=== PATIENT | female | born 1935 | race Caucasian/White ===

== ENCOUNTER → 2017-06-15 | Outpatient (CLI) | payer MEDICARE, BC | END | disposition home or self-care (01) | LOC: LABPAT 09:32 | PROVIDERS: ATTEND Orthopaedic Surgery | DX: Z01.812 Encounter for preprocedural laboratory examination (principal) | CPT/HCPCS: 86850; 86900; 86901; 87070 ==

== ENCOUNTER → 2017-09-24 | Outpatient (CLI) | payer MEDICARE, BC ==
--- NOTE | 2017-09-24 14:30 | US ---
EXAMINATION TYPE: US thyroid st tissue head/neck DATE OF EXAM: 09/24/2017 COMPARISON: EXAMINATION TYPE: US thyroid st tissue head/neck DATE OF EXAM: 09/24/2017 COMPARISON: NONE CLINICAL HISTORY: Rt Submandibular mass R22.0. Patient states lump right side of neck under chin for two months. Scanned directly over palpable, located under chin on the right side in the submandibular area. There is a hypoechoic area adjacent to the submandibular gland with an echogenic center, consistent with a lymph node. IMPRESSION: Benign-appearing lymph node at the site of patient's palpable abnormality. Follow-up cli nically, consider repeat imaging as indicated.
== END | disposition home or self-care (01) ==
LOC: RADUSWWP 12:42
PROVIDERS: ATTEND Otolaryngology
DX: R22.0 Localized swelling, mass and lump, head (principal)
CPT/HCPCS: 76536

== ENCOUNTER → 2017-12-31 | Outpatient (CLI) | payer MEDICARE, BC ==
--- NOTE | 2017-12-31 09:46 | US ---
EXAMINATION TYPE: US thyroid st tissue head/neck DATE OF EXAM: 12/31/2017 COMPARISON: US CLINICAL HISTORY: Rt submandibular gland mass K11.1. F/U right submandibular mass, pt states palpable right neck still present, unchanged In area of pt's palpable (right submandibular), the previous benign appearing lymph node visualized is still present on today's scan= 6mm AP measurement with 2 additional benign appearing lymph nodes visualized 5mm and 4mm AP measurement Stable subcentimeter benign-appearing right submandibular lymph node with 2 smaller adjacent benign-a ppearing lymph nodes marked by technologist on current study. IMPRESSION: Overall stable findings presumed benign .
== END | disposition home or self-care (01) ==
LOC: RADUSWWP 08:54
PROVIDERS: ATTEND Otolaryngology
DX: K11.1 Hypertrophy of salivary gland (principal)
CPT/HCPCS: 76536

== ENCOUNTER 2020-01-24 08:48 | Emergency (ER) | payer MEDICARE, BC ==
[2020-01-24 08:56] VITALS: RESP 16
[2020-01-24] MEDS ORDERED: SODIUM CHLORIDE 0.9% 500 ML 500 ML IV ONE (09:34)
--- NOTE | 2020-01-24 09:46 | ED ---
General Adult HPI - General Chief complaint: Recheck/Abnormal Lab/Rx Stated complaint: High BP/low pulse/ear problems Time Seen by Provider: 01/24/20 09:11 Source: patient, RN notes reviewed Mode of arrival: wheelchair Limitations: no limitations - History of Present Illness Initial comments: 74-year-old female presents emergency Department chief complaint of blood pressure issues. Patient states that her blood pressure has been up and down for last week. Patient states her pulse has been also up and down. She does have a known history of A. fib on Coumadin, digoxin, metoprolol and losartan. Patient states that she recently increased her losartan to 1 pill daily from a half a pill. Patient states she sees Dr. 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 Pizarro. Patient denies any associated chest pain, shortness breath, nausea vomiting. She states occasionally she's felt lightheaded or had a headache but does not have those current symptoms currently. Patient denies fevers or chills no URI symptoms. Denies any leg pa in or leg swelling. - Related Data Home Medications Medication Instructions Recorded Confirmed Aspirin [Adult Low Dose Aspirin EC] 81 mg PO DAILY 06/19/17 06/23/17 Cyanocobalamin [Vitamin B-12] 500 mcg PO DAILY 06/19/17 06/23/17 Digoxin [Lanoxin] 125 mcg PO DAILY 06/19/17 06/23/17 Lovastatin [Mevacor] 10 mg PO DAILY 06/19/17 06/23/17 Metoprolol Succinate [Toprol XL] 25 mg PO DAILY 06/19/17 06/23/17 Previous Rx's Medication Instructions Recorded HYDROcodone/APAP 5-325MG [[place] 1 - 2 tab PO Q4-6H PRN #90 tab 06/26/17 5-325] Losartan-Hctz 50-12.5 mg [Hyzaar 0.5 each PO DAILY tab 06/26/17 50-12.5] Sennosides-Docusate Sodium 1 tab PO BID #60 tablet 06/26/17 [Senokot-S] Warfarin Sodium [Coumadin] 2.5 mg PO DAILY #30 tablet 06/26/17 Allergies Allergy/AdvReac Type Severity Reaction Status Date / Time Sulfa (Sulfonamide Allergy Unknown Rash/Hives Verified 01/24/20 08:53 Antibiotics) alcohol AdvReac Unknown Rapid Verified 01/24/20 08:53 Heart Rate, Flushed face Review of Systems ROS Statement: Those systems with pertinent positive or pertinent negative responses have been documented in the HPI. ROS Other: All systems not noted in ROS Statement are negative. Past Medical History Past Medical History: Atrial Fibrillation, Hypertension, Osteoarthritis (OA) Additional Past Medical History / Comment(s): VARICOSE VEINS, ENVIRONMENTAL ALLERGIES, SINUS DRAINAGE WITH COUGH- STATES SHE SPOKE WITH [facility] AT [facility]. STATES SHE WEARS SPECIAL SHOE LEFT FOOT AND USES CANE. History of Any Multi-Drug Resistant Organisms: None Reported Past Surgical History: Appendectomy, Hysterectomy, Orthopedic Surgery Additional Past Surgical History / Comment(s): HEMMORHOIDS, LEFT CARPAL TUNNEL , BUNIONS, FATTY TUMOR RIGHT BREAST, LEFT GREAT TOE, CATARACTS. Past Anesthesia/Blood Transfusion Reactions: Motion Sickness Additional Past Anesthesia/Blood Transfusion Reaction / Comment(s): "TAKES A LONG TIME TO WAKE UP" Past Psychological History: No Psychological Hx Reported Smoking Status: Never smoker Past Alcohol Use History: None Reported Past Drug Use History: None Reported - Past Family History Brother(s) Family Medical History: Cancer Sister(s) Family Medical History: Cancer Daughter(s) Additional Family Medical History / Comment(s): MULTIPLE SCLEROSIS- . General Exam Limitations: no limitations General appearance: alert, in no apparent distress Head exam: Present: atraumatic, normocephalic, normal inspection Eye exam: Present: normal appearance, PERRL, EOMI. Absent: scleral icterus, conjunctival injection, periorbital swelling ENT exam: Present: normal exam, normal oropharynx, mucous membranes moist, TM's normal bilaterally Neck exam: Present: normal inspection, full ROM. Absent: tenderness, meningismus, lymphadenopathy Respiratory exam: Present: normal lung sounds bilaterally. Absent: respiratory distress, wheezes, rales, rhonchi, stridor Cardiovascular Exam: Present: regular rate, normal rhythm, normal heart sounds. Absent: systolic murmur, diastolic murmur, rubs, gallop, clicks GI/Abdominal exam: Present: soft, normal bowel sounds. Absent: distended, tenderness, guarding, rebound, rigid Neurological exam: Present: alert, oriented X3 Skin exam: Present: warm, dry, intact, normal color. Absent: rash Course Vital Signs 01/24/20 01/24/20 08:54 09:55 Temperature 98.4 F Pulse Rate 63 66 Respiratory 16 16 Rate Blood Pressure 178/87 150/99 O2 Sat by Pulse 95 96 Oximetry Medical Decision Making - Medical Decision Making This 84-year-old female presented for blood pressure problems. Patient's blood pressure has been labile. Patient's blood pressure currently is 142/80. Patient is asymptomatic. Patient has had some recent medication changes she is to be on Hyzaar. Patient advised follow-up with a fire ranger for medication check. Patient's labs are unremarkable. Patient agrees with discharge and close follow-up return parameters were discussed. - Lab Data Result diagrams: 01/24/20 09:18 01/24/20 09:18 Lab Results 01/24/20 01/24/20 01/24/20 Range/Units 09:18 09:18 09:18 WBC 8.3 (3.8-10.6) k/uL RBC 5.18 (3.80-5.40) m/uL Hgb 15.3 (11.4-16.0) gm/dL Hct 47.7 H (34.0-46.0) % MCV 92.1 (80.0-100.0) fL MCH 29.5 (25.0-35.0) pg MCHC 32.0 (31.0-37.0) g/dL RDW 13.4 (11.5-15.5) % Plt Count 209 (150-450) k/uL Neutrophils % 82 % Lymphocytes % 9 % Monocytes % 6 % Eosinophils % 1 % Basophils % 1 % Neutrophils # 6.9 (1.3-7.7) k/uL Lymphocytes # 0.8 L (1.0-4.8) k/uL Monocytes # 0.5 (0-1.0) k/uL Eosinophils # 0.1 (0-0.7) k/uL Basophils # 0.0 (0-0.2) k/uL PT 15.8 H (9.0-12.0) sec INR 1.6 H (<1.2) APTT 28.8 (22.0-30.0) sec Sodium 135 L (137-145) mmol/L Potassium 4.4 (3.5-5.1) mmol/L Chloride 100 (98-107) mmol/L Carbon Dioxide 23 (22-30) mmol/L Anion Gap 12 mmol/L BUN 27 H (7-17) mg/dL Creatinine 1.01 (0.52-1.04) mg/dL Est GFR (CKD-EPI)AfAm 58 (>60 ml/min/1.73 sqM) Est GFR (CKD-EPI)NonAf 51 (>60 ml/min/1.73 sqM) Glucose 113 H (74-99) mg/dL Calcium 10.4 H (8.4-10.2) mg/dL Magnesium 1.8 (1.6-2.3) mg/dL Total Bilirubin 0.8 (0.2-1.3) mg/dL AST 31 (14-36) U/L ALT 21 (4-34) U/L Alkaline Phosphatase 62 (38-126) U/L Troponin I (0.000-0.034) ng/mL Total Protein 7.7 (6.3-8.2) g/dL Albumin 4.7 (3.5-5.0) g/dL Digoxin 0.8 ng/mL 01/24/20 Range/Units 09:18 WBC (3.8-10.6) k/uL RBC (3.80-5.40) m/uL Hgb (11.4-16.0) gm/dL Hct (34.0-46.0) % MCV (80.0-100.0) fL MCH (25.0-35.0) pg MCHC (31.0-37.0) g/dL RDW (11.5-15.5) % Plt Count (150-450) k/uL Neutrophils % % Lymphocytes % % Monocytes % % Eosinophils % % Basophils % % Neutrophils # (1.3-7.7) k/uL Lymphocytes # (1.0-4.8) k/uL Monocytes # (0-1.0) k/uL Eosinophils # (0-0.7) k/uL Basophils # (0-0.2) k/uL PT (9.0-12.0) sec INR (<1.2) APTT (22.0-30.0) sec Sodium (137-145) mmol/L Potassium (3.5-5.1) mmol/L Chloride (98-107) mmol/L Carbon Dioxide (22-30) mmol/L Anion Gap mmol/L BUN (7-17) mg/dL Creatinine (0.52-1.04) mg/dL Est GFR (CKD-EPI)AfAm (>60 ml/min/1.73 sqM) Est GFR (CKD-EPI)NonAf (>60 ml/min/1.73 sqM) Glucose (74-99) mg/dL Calcium (8.4-10.2) mg/dL Magnesium (1.6-2.3) mg/dL Total Bilirubin (0.2-1.3) mg/dL AST (14-36) U/L ALT (4-34) U/L Alkaline Phosphatase (38-126) U/L Troponin I 0.014 (0.000-0.034) ng/mL Total Protein (6.3-8.2) g/dL Albumin (3.5-5.0) g/dL Digoxin ng/mL Disposition Clinical Impression: Hypertension Disposition: HOME SELF-CARE Condition: Stable Instructions (If sedation given, give patient instructions): Hypertension (ED) Additional Instructions: Please return to the Emergency Department if symptoms worsen or any other concerns. Is patient prescribed a controlled substance at d/c from ED?: No Referrals: Susi Pizarro MD [Primary Care Provider] - 1-2 days Time of Disposition: 11:08
--- NOTE | 2020-01-24 09:59 | XR ---
EXAMINATION TYPE: XR chest 2V DATE OF EXAM: 01/24/2020 COMPARISON: 06/24/2017 INDICATION: Chest pain, history of A. fib TECHNIQUE: Frontal and lateral views of the chest are obtained. FINDINGS: The heart size is normal. The pulmonary vasculature is normal. The lungs are clear. Degenerative changes are at the right shoulder. Exam is stable from comparison. IMPRESSION: 1. No acute pulmonary process.
[2020-01-24 10:01] LABS: Basophils % (A) 1 %; Eosinophils # (A) 0.1 k/uL (0-0.7); Eosinophils % (A) 1 %; HCT 47.7 % (34.0-46.0); HGB 15.3 gm/dL (11.4-16.0); Lymphocytes # (A) 0.8 k/uL (1.0-4.8); Lymphocytes % (A) 9 %; MCH 29.5 pg (25.0-35.0); MCV 92.1 fL (80.0-100.0); Mean Platelet Volume 8.4; Monocytes # (A) 0.5 k/uL (0-1.0); Monocytes % (A) 6 %; Neutrophils # (A) 6.9 k/uL (1.3-7.7); Neutrophils % (A) 82 %; Platelet Count 209 k/uL (150-450); RBC 5.18 m/uL (3.80-5.40); RDW 13.4 % (11.5-15.5); WBC 8.3 k/uL (3.8-10.6)
[2020-01-24 10:13] LABS: Albumin 4.7 g/dL (3.5-5.0); Calcium 10.4 mg/dL (8.4-10.2); Digoxin 0.8 ng/mL; Magnesium 1.8 mg/dL (1.6-2.3); Potassium 4.4 mmol/L (3.5-5.1); Total Bilirubin 0.8 mg/dL (0.2-1.3); Total Protein 7.7 g/dL (6.3-8.2)
[2020-01-24 10:21] LABS: INR 1.6 (<1.2); Partial Thromboplastin Time 28.8 sec (22.0-30.0); Prothrombin Time 15.8 sec (9.0-12.0)
[2020-01-24 11:16] VITALS: BP 145/88; PULSE 68; TEMP 98
== END 2020-01-24 11:16 | disposition home or self-care (01) ==
LOC: EC 08:48
DX: I10 Essential (primary) hypertension (principal); I48.91 Unspecified atrial fibrillation; M19.90 Unspecified osteoarthritis, unspecified site; Z79.01 Long term (current) use of anticoagulants; Z79.899 Other long term (current) drug therapy; Z88.2 Allergy status to sulfonamides
CPT/HCPCS: 36415; 71046; 80053; 80162; 83735; 84484; 85025; 85610; 85730; 93005; 99284

== ENCOUNTER → 2020-04-17 | Outpatient (CLI) | payer MEDICARE, BC ==
[2020-04-17 12:51] LABS: INR 1.2 (<1.2); Prothrombin Time 12.1 sec (9.0-12.0)
== END | disposition home or self-care (01) ==
LOC: LABWHC1 11:20
PROVIDERS: ATTEND Dentist Oral and Maxillofacial Surgery
DX: Z51.81 Encounter for therapeutic drug level monitoring (principal); Z79.01 Long term (current) use of anticoagulants
CPT/HCPCS: 36415; 85610

== ENCOUNTER → 2021-01-22 | Outpatient (CLI) | payer MEDICARE, BC ==
[2021-01-22 11:06] LABS: HCT 43.6 % (34.0-46.0); HGB 14.8 gm/dL (11.4-16.0); MCH 31.5 pg (25.0-35.0); MCHC 33.9 g/dL (31.0-37.0); MCV 92.7 fL (80.0-100.0); Mean Platelet Volume 7.9; Platelet Count 221 k/uL (150-450); RBC 4.71 m/uL (3.80-5.40); RDW 13.5 % (11.5-15.5); WBC 7.1 k/uL (3.8-10.6)
[2021-01-22 11:19] LABS: INR 3.6 (<1.2); Partial Thromboplastin Time 40.2 sec (22.0-30.0); Prothrombin Time 34.4 sec (9.0-12.0)
[2021-01-22 11:21] LABS: Appearance,Urine Cloudy (Clear); Bacteria,Urine Occasional /hpf; Bilirubin,Urine Negative (Negative); Blood,Urine Small (Negative); Color,Urine Yellow; Glucose,Urine (UA) Negative (Negative); Hyaline Casts,Urine 9 /lpf (0-2); Ketones,Urine Negative (Negative); Leukocyte Esterase,Urine Large (Negative); Mucus,Urine Rare /hpf; Nitrite,Urine Negative (Negative); PH, Urine 7.5 (5.0-8.0); Protein,Urine 1+ (Negative); RBC,Urine 8 /hpf (0-5); Specific Gravity,Urine 1.015 (1.001-1.035); Squamous Epithelial Cell,Urine 3 /hpf (0-4); Urobilinogen,Urine <2.0 mg/dL (<2.0); WBC,Urine 29 /hpf (0-5)
[2021-01-22 11:24] LABS: Albumin 4.5 g/dL (3.5-5.0); Potassium 4.5 mmol/L (3.5-5.1); Total Bilirubin 0.7 mg/dL (0.2-1.3); Total Protein 7.1 g/dL (6.3-8.2)
== END | disposition home or self-care (01) ==
LOC: LABPAT 10:24
PROVIDERS: ATTEND Orthopaedic Surgery
DX: Z01.812 Encounter for preprocedural laboratory examination (principal); Z01.810 Encounter for preprocedural cardiovascular examination
CPT/HCPCS: 80053; 81001; 85027; 85610; 85730; 87070

== ENCOUNTER 2021-01-29 10:12 | Day surgery (SDC) | payer MEDICARE, BC ==
[2021-01-25 11:40] VITALS: BMI 24.9
[~2021-01-29 10:12] MED LIST: ACETAMINOPHEN TAB 500 MG TAB PO PRN; GABAPENTIN 300 MG CAP PO PRN; HYDROmorphone 0.5 MG/0.5 ML SYRINGE IVP PRN; LIDOCAINE 1% (10MG/ML) FOR IV START INTRADERMA PRN; MELOXICAM 7.5 MG TAB PO PRN; ONDANSETRON 4 MG/2 ML VIAL IVP ONE; TRANEXAMIC ACID 1,000 MG in SODIUM CHLORIDE 0.9% 100 ML IVPB PRN
[2021-01-29] MEDS: LACTATED RINGERS 1,000 ML IV SCH (11:02)
[2021-01-29] MEDS ORDERED: DEXAMETHASONE SOD PHOSPHATE 4 MG/ML 1 ML VIAL IVP ONE (11:03)
[2021-01-29 11:21] LABS: INR 1.1 (<1.2); Partial Thromboplastin Time 26.3 sec (22.0-30.0); Prothrombin Time 11.9 sec (9.0-12.0)
[2021-01-29] MEDS ORDERED: PHENYLEPHRINE-0.9% NACL SYG 1,000 MCG/10 ML SYRINGE ONE (11:28)
[2021-01-29] MEDS ORDERED: ceFAZolin 1,000 MG in SODIUM CHLORIDE 0.9% 1,000 ML IRRIGATION ONE (11:28)
[2021-01-29] MEDS ORDERED: fentaNYL (PF) 50 MCG/ML 2 ML AMP ONE (11:28)
[2021-01-29] MEDS ORDERED: SODIUM CHLORIDE 0.9% IRRIG 1,000 ML BTL IRRIGATION ONE (11:28)
[2021-01-29] MEDS ORDERED: HEPARIN SODIUM,PORCINE 10,000 UNIT/ML 1 ML VIAL ONE (11:28)
[2021-01-29] MEDS ORDERED: TRANEXAMIC ACID 1,000 MG/10 ML VIAL ONE (11:28)
[2021-01-29] MEDS ORDERED: MIDAZOLAM 2 MG/2 ML VIAL ONE (11:28)
[2021-01-29] MEDS ORDERED: SODIUM CHLORIDE 0.9% 100 ML BAG ONE (11:28)
[2021-01-29] MEDS ORDERED: PROPOFOL 10 MG/ML 20 ML VIAL IV ONE (11:28)
[2021-01-29] MEDS ORDERED: NALOXONE 0.4 MG/ML 1 ML VIAL IV PRN (11:31)
[2021-01-29] MEDS ORDERED: HYDROmorphone 0.2 MG/1 ML SYRINGE IVP PRN (11:31)
[2021-01-29] MEDS ORDERED: ONDANSETRON 4 MG/2 ML VIAL IVP PRN (11:31)
[2021-01-29] MEDS ORDERED: HYDROmorphone 0.5 MG/0.5 ML SYRINGE IVP PRN ×2 (11:31)
[2021-01-29] MEDS ORDERED: MAGNESIUM HYDROXIDE 2,400 MG/10 ML CUP PO PRN (11:31)
[2021-01-29] MEDS ORDERED: HYDROcodone/APAP 5-325MG 1 EACH TAB PO PRN (11:34)
[2021-01-29] MEDS: ROPIVACAINE/EPI/CLONIDINE/KET 50 ML SYRINGE MISCELLANE PRN ×2 (12:06→12:51)
--- NOTE | 2021-01-29 12:55 | P.OP ---
Date of Procedure: 01/29/21 Preoperative Diagnosis: severe osteoarthritis right hip Postoperative Diagnosis: severe osteoarthritis right hip Procedure(s) Performed: right total hip arthroplasty with a direct anterior approach Implants: [employer] Polarstem standard size 4 [employer] R3, 3 hole hemispherical acetabular shell, 52 mm [employer] Reflection 6.5 mm cancellus screw, 20 mm 2 [employer] R3, XLPE 20 acetabular liner [employer] Oxinium femoral head 36 m, +0 All components were press-fit. The articulation is Oxinium on polyethylene. Anesthesia: GETA, spinal Surgeon: Artis Serra Cdc Associate #1: Alayna Londono Estimated Blood Loss (ml): 300 (124 mL returned with Cell Saver) Pathology: other (femoral head) Condition: stable Disposition: PACU Indications for Procedure: After failure of conservative treatment we discussed the surgical and nonsurgical treatment options at length. Patient wishes to proceed with a total hip arthroplasty with a direct anterior approach. Complications specific to this procedure were discussed at length, including but not limited to infection, leg length discrepancy, dislocation, nerve injury, and fracture. Covid-19 was also discussed at length with the patient, and they are aware of the current policies and procedures. The patient was given the option of delaying surgery, but they elect to proceed knowing these risks. Patient is aware of all these complications and informed consent was obtained Operative Findings: the operative findings are consistent with severe osteoarthritis of the right hip Description of Procedure: Patient was seen and evaluated in the preoperative area and the consent was reviewed. The operative site was marked with a skin marker. The patient was then brought to the operating room and given preoperative antibiotics intravenously. 1 g of Tranexamic acid was also given intravenously. A spinal anesthetic was administered by the anesthesia department. during the surgery, the spinal anesthetic was not adequate for pain control. A general anesthetic was administered. The patient was then placed on the [place] table with the bony prominences well-padded. The hip area was then prepped with a ChloraPrep solution and draped in the usual sterile fashion. A universal timeout was then performed, which confirmed the patient's name, surgical site, ALLERGIES, and procedure being performed on the consent. Next the incision site was located at 1 cm distal to the anterior superior iliac spine along the flexion crease of the hip. The skin and subcutaneous tissues were sharply incised. Incision was carefully dissected down to the fascia overlying the tensor fascia ayo muscle. This fascia was then incised in line with the incision. Care was taken to stay laterally in order to avoid injuring the lateral femoral cutaneous nerve. Next, using blunt finger dissection, the tensor fascia ayo muscle was dissected off its investing fascia. The muscle was then carefully retracted laterally with a cobra retractor over the lateral neck of the femur. Next, the circumflex vessels were identified and cauterized using the AquaMantis device. The anterior hip capsule was then exposed. The capsule was then opened and an inverted T fashion. Cobra retractors were then placed intracapsularly. The retractors were maintained intracapsular throughout the procedure. The proximal femur was then visualized. A small amount of traction was placed on the leg. The femoral neck was then osteotomized appropriate level above the lesser trochanter. A small wedge of bone was then removed from the remaining femoral head. Next, using a corkscrew the femoral head was removed from the acetabulum. On gross visual inspection, the femoral head had complete loss of articular c artilage and multiple periarticular osteophytes. The femoral head was then measured. Attention was then turned to the acetabulum. The acetabulum was exposed and any remaining labrum was excised. Sequential reaming of the acetabulum was performed using fluoroscopic guidance until there was a good bed of bleeding cancellus bone. When the appropriate size was reached, a trial was then placed. The position and fit of the trial was checked with fluoroscopy. The trial was then removed. Then, using fluoroscopic guidance, the final implant was impacted at 20 of anteversion and 40 of abduction, and fully seated in the acetabulum. 2 screws were then placed in the acetabulum. Again fluoroscopy was used to check position of the screws. Next, the liner was then impacted, with a 20 elevated liner located in the anterior superior quadrant. Component locking was confirmed. Attention was then directed to the femur. With the aid of the [place] table, the femur was externally rotated to approximately 130, extended, and adducted under the opposite leg. A side hook was then placed under the proximal femur, and the side hook elevator was used to elevate the proximal femur while releasing the capsule. Retractors were then placed. A capsular release was performed, as well as a release of the conjoined tendon, which afforded excellent visualization of the proximal femur. Next, a box osteotome was used to lateralize the proximal femur. A hand riveter was then used to locate the femoral canal. Sequential broaching was then performed with appropriate size which afforded excellent fixation in the proximal femur. A trial was then placed with appropriate head and neck, and the hip was gently reduced with the aid of the [place] table. Fluoroscopy was then used to check position of the components, as well as to ensure equal leg lengths. The hip was then gently dislocated and the trials were then removed. Final implants were then impacted and the hip was again reduced. Final fluoroscopic x-rays confirmed that the components were in anatomic position, as well as equal leg lengths. The hip was also taken through range of motion, and found to be stable. The hip was then copiously irrigated with antibiotic solution with pulsatile lavage. The hip was then irrigated with Irrisept solution. The soft tissues were then injected with a ropivacaine solution, which consisted of 246.25 mg of ropivacaine, 0.5 mg of epinephrine, 30 mg of Toradol, 80 g of clonidine, and 48.45 mL of sterile water, for a total of 100 mL of fluid injected. A second dose of 1 g of Tranexamic acid was also given intravenously. Any blood collected by Cell Saver was then returned to the patient at this time. The fascia was then closed with 2-0 strata fix suture. The subcutaneous tissue was closed with 3-0 Vicryl. The subcuticular tissue was closed with 3-0 strata fix suture. The skin was then closed with Exofin skin glue. After the glue and dried, and Optifoam silver impregnated dressing was applied. The patient was then transferred to the recovery room in stable condition. The child life assistant ROB Walker was required due to the complexity of surgery, and the need for skilled surgical assist for positioning, draping, exposure, retraction, and closure of the wound.
[2021-01-29] MEDS: SODIUM CHLORIDE 0.9% 1,000 ML IV SCH ×3 (13:14→23:10)
--- NOTE | 2021-01-29 14:10 | XR ---
EXAMINATION TYPE: XR Hip Limited RT DATE OF EXAM: 01/29/2021 CLINICAL HISTORY: Right hip pain and osteoarthritis. TECHNIQUE: Single AP portable view of right hip is obtained immediately postoperatively. COMPARISON: None. FINDINGS: Metallic hardware from right hip arthroplasty is seen and appears satisfactory in alignment and position. There is evidence of recent surgery with subcutaneous gas noted laterally. IMPRESSION: Metallic hardware from right hip arthroplasty is satisfactory in position.
--- NOTE | 2021-01-29 16:11 | XR ---
Single view right hip liver image INDICATION: Postoperative hip COMPARISON: None FINDINGS: Patient is status post right total hip replacement with 2 acetabular screws. Soft tissue gas is noted . For full details please see the operative report. IMPRESSION: Patient is status post right total hip replacement with 2 acetabular screws. Soft tissue gas is noted . For full details please see the operative report.
--- NOTE | 2021-01-29 17:03 | FL ---
Fluoroscopy HISTORY: Hip arthroplasty 13 seconds fluoroscopy time supplied to the referring clinician. 2 intraoperative C-arm images docum ent the procedure. See dictated report from orthopedic surgery.
[2021-01-29] MEDS ORDERED: WARFARIN 2 MG TAB PO ONE (18:00)
--- NOTE | 2021-01-29 19:13 | CONS ---
CONSULTATION REASON FOR CONSULTATION: Advice regarding atrial fibrillation, hypertension, hyperlipidemia requested by Orthopedics. HISTORY OF PRESENT ILLNESS: This is an 85-year-old woman with a past history of atrial fibrillation, hypertension, hyperlipidemia, history of degenerative joint disease, rheumatoid arthritis, being followed by Dr. Pizarro in the outpatient setting. Underwent right total hip joint arthroplasty for severe DJD. The patient tolerated the procedure well. Patient being closely monitored. There is no history of fever, rigors. No headache, loss of consciousness, seizures. PAST MEDICAL HISTORY: Atrial fibrillation, hypertension, hyperlipidemia, history of DJD, rheumatoid arthritis. MEDICATIONS: Cipro 250 mg p.o. b.i.d. Toprol-XL, Mevacor, vitamin B12, acetaminophen, calcium, losartan, garlic, aspirin, Coumadin. ALLERGIES: SULFA AND ALCOHOL. FAMILY HISTORY: History of multiple sclerosis. SOCIAL HISTORY: No history of smoking. No history of alcohol. REVIEW OF SYSTEMS: ENT: No diminished vision or hearing. CARDIOVASCULAR: No angina or palpitations, otherwise as mentioned earlier. RESPIRATORY: No cough. GI: As mentioned earlier. : No dysuria. NERVOUS SYSTEM: No numbness or weakness. ALLERGY/IMMUNOLOGY: No asthma or hayfever. MUSCULOSKELETAL: As mentioned earlier. HEMATOLOGY: No history of anemia. ENDOCRINE: As mentioned earlier. CONSTITUTIONAL: As mentioned earlier. DERMATOLOGY: Negative. RHEUMATOLOGY: Negative. PSYCHIATRY: As mentioned earlier. PHYSICAL EXAMINATION: GENERAL: Patient is alert and oriented times three. VITAL SIGNS: Pulse 97, blood pressure 115/73, respirations 18, temperature 97.8, pulse ox 94% on room air. HEENT: Conjunctivae normal. Oral mucosa moist. NECK: No jugular venous distention. No carotid bruits. No lymph node enlargement. RESPIRATORY: Breath sounds diminished at the bases. No rhonchi, no crackles. HEART: S1 and S2, muffled. No S3 or S4. ABDOMEN: Soft, no tenderness. No masses palpable. EXTREMITIES: No edema, no swelling. NERVOUS: Higher functions as mentioned earlier. Moves all four limbs. No focal motor or sensory deficits. LYMPHATICS: No lymph nodes palpable in the neck or axillae. SKIN: No rashes. JOINTS: No active deforming arthropathy. LABS: At this time INR is normal. The preoperative labs, hematology is okay. Chemistry, sodium 135 and glucose 128. ASSESSMENT: 1. Status post right total hip joint arthroplasty for severe degenerative joint disease of the right hip. 2. Hyponatremia prior to the admission. 3. History of atrial fibrillation, chronic. 4. Hypertension. 5. Hyperlipidemia. 6. History of degenerative joint disease. 7. Rheumatoid arthritis. 8. Coumadin monitoring. 9. History of appendectomy. 10.History hysterectomy. 11.FULL CODE. RECOMMENDATION AND DISCUSSION: In this 85-year-old woman who presented with multiple complex medical issues, we will monitor the patient closely. Continue the current management and continue symptomatic treatment. I recommend initiate Coumadin and monitor PT/INR closely. Resume the home medications. Incentive spirometry. DVT prophylaxis. Recommend close followup with Dr. Pizarro in the outpatient setting. Further recommendations to follow. MMODL / IJN: [id number] /
[2021-01-29] MEDS: ENOXAPARIN 30 MG/0.3 ML SYRINGE SQ SCH (20:26)
[2021-01-29] MEDS: HYDROcodone/APAP 5-325MG 1 EACH TAB PO PRN (20:28)
[2021-01-29] MEDS ORDERED: SENNOSIDES-DOCUSATE SODIUM 1 EACH TAB PO SCH (21:00)
[2021-01-29] MEDS ORDERED: ATORVASTATIN 10 MG TAB PO SCH (21:00)
[2021-01-29] MEDS ORDERED: CIPROFLOXACIN HCL 250 MG TAB PO SCH (21:00)
[2021-01-30] MEDS: LACTATED RINGERS 1,000 ML IV SCH (05:08)
[2021-01-30 06:40] LABS: INR 1.3 (<1.2); Prothrombin Time 13.5 sec (9.0-12.0)
--- NOTE | 2021-01-30 07:23 | P.DS ---
Providers Date of admission: 01/29/2021 Attending physician: Artis Serra Consults: 01/29/21 11:31 Consult Physician Routine Consulting Provider: Susi Pizarro Consult Reason/Comments: medical management and anticoagulation Do you want consulting provider notified?: Yes Primary care physician: Susi Pizarro - Discharge Diagnosis(es) (1) Primary osteoarthritis of right hip Current Visit: Yes Status: Acute (2) Status post total hip replacement, right Current Visit: Yes Status: Acute Hospital Course: This is a 85-year-old female with known history of degenerative arthritis of the right hip. The patient presents for evaluation. After discussion and consideration patient elects to proceed with total hip arthroplasty with direct anterior approach. The patient is seen preoperatively by her primary care physician and cleared for surgery. Patient is admitted to [facility] on 01/29/2021 for total hip arthroplasty with direct anterior approach. The procedures performed without complication or sequelae. The patient is doing well postoperatively. Labs and vital signs are stable on day of discharge. On day of discharge patient's hip incision is healing well. There is minimal erythema. There is no drainage noted at this time. There is minimal soft tissue swelling to the hip and thigh. Patient has full foot and ankle motion without difficulty or pain. Neurovascular status to the right lower extremity is intact. Patient is discharged to home in good condition. Please see med rec for accurate list of home medications. Patient Condition at Discharge: Good Plan - Discharge Summary Discharge Rx Participant: Yes New Discharge Prescriptions: New HYDROcodone/APAP 5-325MG [[place] 5-325] 1 - 2 tab PO Q6HR PRN #32 tab PRN Reason: Pain Sennosides [Senokot] 2 tab PO DAILY PRN #60 tablet PRN Reason: Constipation No Action Metoprolol Succinate [Toprol XL] 12.5 mg PO QAM Cyanocobalamin [Vitamin B-12] 500 mcg PO SA Aspirin [Adult Low Dose Aspirin EC] 81 mg PO DAILY Warfarin Sodium [Coumadin] 2.5 mg PO DAILY #30 tablet Lovastatin [Mevacor] 10 mg PO HS Zinc 50 mg PO DAILY Magnesium 300 mg PO DAILY Losartan Potassium [Cozaar] 25 mg PO QAM Krill/[place]-3/Dha/Epa/Lipids [Krill Oil 350 mg Softgel] 1 each PO DAILY Garlic 1 each PO DAILY Calcium Carbonate/Vitamin D3 [Calcium 500 mg-Vit D3 5 mcg (200 Unit)] 1 each PO DAILY Ciprofloxacin HCl [Cipro] 250 mg PO BID Arnica Flower 3 tab SL DAILY Acetaminophen [Tylenol Extra Strength] 500 mg PO DAILY PRN PRN Reason: Pain Antibiotic 1 tab PO DIRECTED Discharge Medication List Aspirin [Adult Low Dose Aspirin EC] 81 mg PO DAILY 06/19/17 [History] Cyanocobalamin [Vitamin B-12] 500 mcg PO SA 06/19/17 [History] Metoprolol Succinate [Toprol XL] 12.5 mg PO QAM 06/19/17 [History] Warfarin Sodium [Coumadin] 2.5 mg PO DAILY #30 tablet 06/26/17 [Rx] Acetaminophen [Tylenol Extra Strength] 500 mg PO DAILY PRN 01/25/21 [History] Antibiotic 1 tab PO DIRECTED 01/25/21 [History] Arnica Flower 3 tab SL DAILY 01/25/21 [History] Calcium Carbonate/Vitamin D3 [Calcium 500 mg-Vit D3 5 mcg (200 Unit)] 1 each PO DAILY 01/25/21 [History] Garlic 1 each PO DAILY 01/25/21 [History] Krill/[place]-3/Dha/Epa/Lipids [Krill Oil 350 mg Softgel] 1 each PO DAILY 01/25/21 [History] Losartan Potassium [Cozaar] 25 mg PO QAM 01/25/21 [History] Lovastatin [Mevacor] 10 mg PO HS 01/25/21 [History] Magnesium 300 mg PO DAILY 01/25/21 [History] Zinc 50 mg PO DAILY 01/25/21 [History] Ciprofloxacin HCl [Cipro] 250 mg PO BID 01/29/21 [History] HYDROcodone/APAP 5-325MG [[place] 5-325] 1 - 2 tab PO Q6HR PRN #32 tab 01/29/21 [Rx] Sennosides [Senokot] 2 tab PO DAILY PRN #60 tablet 01/29/21 [Rx] Follow up Appointment(s)/Referral(s): Artis Serra DO [Doctor of Osteopathic Medicine] - 2 Weeks Activity/Diet/Wound Care/Special Instructions: Weightbearing as tolerated with walker. Leave dressing intact. Dressing may be removed by home care nurse or by patient in 7 days. Then change dressing twice daily until follow up. May shower with initial dressing intact and after removal. If dressing become saturated, please remove. Please resume Coumadin. Recommend use of compression stockings daily until follow up to help prevent swelling and blood clots. May remove at night before sleeping. Please follow-up with [facility] in 2 weeks and call with any questions or concerns, . Discharge Disposition: HOME WITH HOME HEALTH SERVICES
[2021-01-30 07:29] LABS: Basophils % (A) 0 %; Eosinophils % (A) 0 %; HCT 30.7 % (34.0-46.0); Lymphocytes # (A) 0.6 k/uL (1.0-4.8); Lymphocytes % (A) 6 %; MCH 31.3 pg (25.0-35.0); MCHC 33.8 g/dL (31.0-37.0); MCV 92.5 fL (80.0-100.0); Mean Platelet Volume 8.6; Monocytes # (A) 0.7 k/uL (0-1.0); Monocytes % (A) 6 %; Neutrophils % (A) 87 %; Platelet Count 183 k/uL (150-450); RBC 3.32 m/uL (3.80-5.40); RDW 14.1 % (11.5-15.5); WBC 10.4 k/uL (3.8-10.6)
[2021-01-30 07:48] LABS: HGB 10.4 gm/dL (11.4-16.0)
[2021-01-30 07:58] VITALS: BP 93/57; PULSE 63; RESP 17; TEMP 97.4
[2021-01-30] MEDS: ENOXAPARIN 30 MG/0.3 ML SYRINGE SQ SCH (08:14)
[2021-01-30] MEDS: HYDROcodone/APAP 5-325MG 1 EACH TAB PO PRN (08:18)
[2021-01-30] MEDS ORDERED: ZINC SULFATE 220 MG CAP PO SCH (09:00)
[2021-01-30] MEDS ORDERED: LOSARTAN 25 MG TAB PO SCH (09:00)
[2021-01-30] MEDS ORDERED: METOPROLOL SUCCINATE (ER) 25 MG TAB.ER.24H PO SCH (09:00)
[2021-01-30] MEDS ORDERED: CALCIUM CARB-VIT D 500 MG-5 MCG TAB PO SCH (09:00)
--- NOTE | 2021-01-30 13:22 | P.PN ---
Subjective Progress Note Date: 01/30/21 This is an 85-year-old female who was recently admitted for right total hip joint arthroplasty with history of severe degenerative joint disease along with atrial fibrillation, hypertension, hyperlipidemia, rheumatoid arthritis and is being closely monitored. Patient is maintained on Coumadin for anticoagulation and will continue. Orthopedics following closely and plans are for discharge today. Patient follows with Dr. Pizarro in the outpatient setting and instructed the patient to follow-up with primary care provider this week. Review of systems: Constitutional: No reports of fatigue, fever, or chills Cardiovascular: No reports of chest pain or palpitations Respiratory: No reports of shortness of breath or cough GI: No reports of nausea, vomiting, or diarrhea : No reports of dysuria or retention Neurovascular: No reports of weakness or numbness, reports some mild right hip discomfort All medications have been reviewed Objective - Vital Signs Vital signs: Vital Signs Temp 97.4 F L 01/30/21 07:58 Pulse 63 01/30/21 07:58 Resp 17 01/30/21 07:58 BP 93/57 01/30/21 07:58 Pulse Ox 96 01/30/21 07:58 Intake & Output 01/29/21 01/30/21 01/30/21 18:59 06:59 18:59 Intake Total 2351 400 Output Total 300 Balance 2050 400 Weight 68 kg Intake: IV 1151 Intake, IV Titration 400 Amount Lactated Ringers 1,000 ml 400 @ 20 mls/hr IV .Q24H HERMELINDO Rx#:[id number] Oral 800 400 Output: Estimated Blood Loss 300 Other: # Voids 1 - Exam Gen: This is a 85-year-old female sitting up in the chair awake, alert and oriented 3, well-developed, well-nourished. HEENT: Head is atraumatic, normocephalic. Pupils equal, round. Sclerae is anicteric. NECK: Supple. No JVD. No lymphadenopathy. No thyromegaly. LUNGS: Breath sounds diminished bilaterally with no rhonchi or crackles noted. No intercostal retractions. HEART: 1, S2 are muffled ABDOMEN: Soft. Bowel sounds are present. No masses. No tenderness. EXTREMITIES: No pedal edema. No calf tenderness. NEUROLOGICAL: Patient is awake, alert and oriented x3. Cranial nerves 2 through 12 are grossly intact. - Labs CBC & Chem 7: 01/30/21 05:48 Labs: Abnormal Lab Results - Last 24 Hours (Table) 01/30/21 01/30/21 Range/Units 05:48 05:48 RBC 3.32 L (3.80-5.40) m/uL Hgb 10.4 L D (11.4-16.0) gm/dL Hct 30.7 L (34.0-46.0) % Neutrophils # 9.0 H (1.3-7.7) k/uL Lymphocytes # 0.6 L (1.0-4.8) k/uL PT 13.5 H (9.0-12.0) sec INR 1.3 H (<1.2) Assessment and Plan Assessment: Status post right total hip joint arthroplasty for severe degenerative joint disease of the right hip Hyponatremia prior to admission History of atrial fibrillation, chronic Hypertension Hyperlipidemia History of degenerative joint disease Rheumatoid arthritis Coumadin monitoring history of appendectomy history of hysterectomy Full code Recommendations and discussion: Recommend to continue with Coumadin and close PT/INR monitoring. INR today is 1.3 and was given a dose of Coumadin 4 mg once and instructed to continue with dose and prescription provided for PT/INR monitoring outpatient for the next 1-2 days. Recommend continue holding losartan as blood pressures have been on the lower side and instructed to follow-up with primary care provider this week to discuss. Also recommend close monitoring of blood pressure in the outpatient setting in keeping a diary for follow-up with Dr. Pizarro. Started the patient and encourage incentive spirometer use at least 10 times every hour while awake. Will continue to follow closely during hospitalization with orthopedics. Instructed the patient to follow-up with primary care provider this week. Thank you for this consultation.
[2021-01-30] MEDS ORDERED: WARFARIN 2 MG TAB PO ONE (18:00)
[2021-02-02] MEDS ORDERED: CYANOCOBALAMIN 500 MCG TAB PO SCH (09:00)
== END 2021-01-30 12:20 | disposition home health service (06) ==
LOC: OR 10:12 → 4SSUR 13:05 → OR 01-30 12:20
PROVIDERS: ATTEND Orthopaedic Surgery
DX: M16.11 Unilateral primary osteoarthritis, right hip (principal); I10 Essential (primary) hypertension; E78.5 Hyperlipidemia, unspecified; Z88.2 Allergy status to sulfonamides; Z79.899 Other long term (current) drug therapy; Z79.01 Long term (current) use of anticoagulants; M51.26 Other intervertebral disc displacement, lumbar region; M47.816 Spondylosis without myelopathy or radiculopathy, lumbar region; I48.20 Chronic atrial fibrillation, unspecified; I25.10 Atherosclerotic heart disease of native coronary artery without angina pectoris
CPT/HCPCS: 93005; 97161; 97165; 86891; 85025; 85610 ×2; 85730; 88300; 73501; 27130; C1776; J2250; J1644; J1100; J0690 ×3; J2405; J3010; J1650 ×2; J2370; J2704; 86850; 86900; 86901

== ENCOUNTER 2022-05-16 20:19 | Observation (INO) | payer MEDICARE, BC ==
[2022-05-16 21:40] LABS: Basophils # (A) 0.1 k/uL (0-0.2); Basophils % (A) 1 %; Eosinophils # (A) 0.1 k/uL (0-0.7); Eosinophils % (A) 2 %; HCT 43.6 % (34.0-46.0); HGB 14.9 gm/dL (11.4-16.0); Lymphocytes # (A) 1.1 k/uL (1.0-4.8); Lymphocytes % (A) 15 %; MCH 31.8 pg (25.0-35.0); MCHC 34.3 g/dL (31.0-37.0); MCV 92.9 fL (80.0-100.0); Monocytes # (A) 0.4 k/uL (0-1.0); Monocytes % (A) 6 %; Neutrophils # (A) 5.4 k/uL (1.3-7.7); Neutrophils % (A) 76 %; Platelet Count 204 k/uL (150-450); RBC 4.69 m/uL (3.80-5.40); RDW 12.9 % (11.5-15.5); WBC 7.2 k/uL (3.8-10.6)
[2022-05-16 21:49] LABS: INR 1.5 (<1.2); Partial Thromboplastin Time 31.1 sec (22.0-30.0); Prothrombin Time 15.5 sec (9.0-12.0)
[2022-05-16 21:50] LABS: Albumin 4.6 g/dL (3.5-5.0); Calcium 9.3 mg/dL (8.4-10.2); Potassium 4.4 mmol/L (3.5-5.1); Total Bilirubin 0.7 mg/dL (0.2-1.3); Total Protein 7.1 g/dL (6.3-8.2)
--- NOTE | 2022-05-16 21:51 | ED ---
Arrhythmia/Palpitations HPI - General Chief Complaint: Arrhythmia/Palpitations Stated Complaint: hypertension, high pulse, headache Time Seen by Provider: 05/16/22 21:35 Source: patient, family, RN notes reviewed, old records reviewed Mode of arrival: wheelchair Limitations: no limitations - History of Present Illness Initial Comments: This is an 86-year-old female to the emergency department for evaluation. Patient presents today for evaluation regards to weakness not feeling well and headache. Patient states she generally ill today no associated headache took her blood pressure was elevated and rested for 2 hours today blood pressure again and it was more severely elevated. Patient's heart rate was fluctuating from high and low and she did not feel well. Patient has history of atrial fibrillation she is on blood thinners no injury or trauma no chest pain or shortness of breath currently. Patient does have shortness of breath when she goes upstairs MD Complaint: rapid heart beat, palpitations, atrial fibrillation -: hour(s) Context: occurred during rest, occurred during exertion Arrhythmia History: atrial fibrillation Associated Symptoms: shortness of breath, anxiety, feeling of impending doom Treatments Prior to Arrival: other (0) - Related Data Home Medications Medication Instructions Recorded Confirmed Cyanocobalamin [Vitamin B-12] 500 mcg PO SA 06/19/17 01/29/21 Metoprolol Succinate [Toprol XL] 12.5 mg PO QAM 06/19/17 01/29/21 Acetaminophen [Tylenol Extra 500 mg PO DAILY PRN 01/25/21 01/29/21 Strength] Antibiotic 1 tab PO DIRECTED 01/25/21 Arnica Flower 3 tab SL DAILY 01/25/21 Calcium Carbonate/Vitamin D3 1 each PO DAILY 01/25/21 01/25/21 [Calcium 500 mg-Vit D3 5 mcg (200 Unit)] Garlic 1 each PO DAILY 01/25/21 01/25/21 Krill/[place]-3/Dha/Epa/Lipids 1 each PO DAILY 01/25/21 01/25/21 [Krill Oil 350 mg Softgel] Lovastatin [Mevacor] 10 mg PO HS 01/25/21 01/29/21 Magnesium 300 mg PO DAILY 01/25/21 Zinc 50 mg PO DAILY 01/25/21 01/25/21 Ciprofloxacin HCl [Cipro] 250 mg PO BID 01/29/21 01/29/21 Previous Rx's Medication Instructions Recorded Warfarin Sodium [Coumadin] 2.5 mg PO DAILY #30 tablet 06/26/17 HYDROcodone/APAP 5-325MG [[place] 1 - 2 tab PO Q6HR PRN #32 tab 01/29/21 5-325] Sennosides [Senokot] 2 tab PO DAILY PRN #60 tablet 01/29/21 Allergies Allergy/AdvReac Type Severity Reaction Status Date / Time Sulfa (Sulfonamide Allergy Unknown Rash/Hives Verified 01/29/21 10:48 Antibiotics) alcohol AdvReac Unknown Rapid Verified 01/29/21 10:48 Heart Rate, Flushed face Review of Systems ROS Statement: Those systems with pertinent positive or pertinent negative responses have been documented in the HPI. ROS Other: All systems not noted in ROS Statement are negative. Past Medical History Past Medical History: Atrial Fibrillation, Hyperlipidemia, Hypertension, Osteoarthritis (OA), Rheumatoid Arthritis (RA) Additional Past Medical History / Comment(s): VARICOSE VEINS, ENVIRONMENTAL ALLERGIES, SINUS DRAINAGE WITH COUGH- STATES SHE SPOKE WITH P.A. AT [facility]. STATES SHE WEARS SPECIAL SHOE LEFT FOOT AND USES CANE. History of Any Multi-Drug Resistant Organisms: None Reported Past Surgical History: Appendectomy, Hysterectomy, Joint Replacement, Orthopedic Surgery Additional Past Surgical History / Comment(s): left hip replacement, HEMMO RHOIDS, LEFT CARPAL TUNNEL , BUNIONS, FATTY TUMOR RIGHT BREAST, LEFT GREAT TOE, CATARACTS. Past Anesthesia/Blood Transfusion Reactions: Motion Sickness Additional Past Anesthesia/Blood Transfusion Reaction / Comment(s): "TAKES A LONG TIME TO WAKE UP" Past Psychological History: No Psychological Hx Reported Smoking Status: Never smoker Past Alcohol Use History: None Reported Past Drug Use History: None Reported - Past Family History Brother(s) Family Medical History: Cancer Sister(s) Family Medical History: Cancer Daughter(s) Additional Family Medical History / Comment(s): MULTIPLE SCLEROSIS- . General Exam Limitations: no limitations General appearance: alert, in no apparent distress, anxious Head exam: Present: atraumatic, normocephalic, normal inspection Eye exam: Present: normal appearance, PERRL, EOMI. Absent: scleral icterus, conjunctival injection, periorbital swelling ENT exam: Present: normal exam, mucous membranes moist Neck exam: Present: normal inspection. Absent: tenderness, meningismus, lymphadenopathy Respiratory exam: Present: normal lung sounds bilaterally. Absent: respiratory distress, wheezes, rales, rhonchi, stridor Cardiovascular Exam: Present: regular rate, normal rhythm, normal heart sounds. Absent: systolic murmur, diastolic murmur, rubs, gallop, clicks GI/Abdominal exam: Present: soft, normal bowel sounds. Absent: distended, tenderness, guarding, rebound, rigid Extremities exam: Present: normal inspection, full ROM, normal capillary refill. Absent: tenderness, pedal edema, joint swelling, calf tenderness Back exam: Present: normal inspection Neurological exam: Present: alert, oriented X3, CN II-XII intact Psychiatric exam: Present: normal affect, normal mood Skin exam: Present: warm, dry, intact, normal color. Absent: rash Course Vital Signs 05/16/22 05/16/22 05/16/22 20:33 22:13 23:24 Temperature 98.1 F Pulse Rate 100 70 Respiratory 16 18 Rate Blood Pressure 172/100 150/106 138/88 O2 Sat by Pulse 98 98 Oximetry - Reevaluation(s) Reevaluation #1: 05/16/22 22:29 Medical record is reviewed Reevaluation #2: 05/16/22 23:45 Patient informed results and questions answered Reevaluation #3: 05/16/22 23:45 Patient remains with headache, blood pressure improving, feeling about the same - Consultations Consultation #1: Spoke with admitting physicians who agree to admit the patient Medical Decision Making - Medical Decision Making 86 female to the emergency department for evaluation of weakness severely elevated outpatient blood pressure and headache. Patient has mildly elevated troponin, will be admitted for cardiac evaluation. Patient is on anticoagulation for atrial fibrillation. Patient is atrial fibrillation from tachycardic or bradycardic - Lab Data Result diagrams: 05/16/22 21:26 05/16/22 21:26 Lab Results 05/16/22 05/16/22 05/16/22 Range/Units 21:26 21:26 21:26 WBC 7.2 (3.8-10.6) k/uL RBC 4.69 (3.80-5.40) m/uL Hgb 14.9 (11.4-16.0) gm/dL Hct 43.6 (34.0-46.0) % MCV 92.9 (80.0-100.0) fL MCH 31.8 (25.0-35.0) pg MCHC 34.3 (31.0-37.0) g/dL RDW 12.9 (11.5-15.5) % Plt Count 204 (150-450) k/uL MPV 8.0 Neutrophils % 76 % Lymphocytes % 15 % Monocytes % 6 % Eosinophils % 2 % Basophils % 1 % Neutrophils # 5.4 (1.3-7.7) k/uL Lymphocytes # 1.1 (1.0-4.8) k/uL Monocytes # 0.4 (0-1.0) k/uL Eosinophils # 0.1 (0-0.7) k/uL Basophils # 0.1 (0-0.2) k/uL PT 15.5 H (9.0-12.0) sec INR 1.5 H (<1.2) APTT 31.1 H (22.0-30.0) sec Sodium 130 L (137-145) mmol/L Potassium 4.4 (3.5-5.1) mmol/L Chloride 93 L (98-107) mmol/L Carbon Dioxide 25 (22-30) mmol/L Anion Gap 12 mmol/L BUN 26 H (7-17) mg/dL Creatinine 0.83 (0.52-1.04) mg/dL Est GFR (CKD-EPI)AfAm 73 (>60 ml/min/1.73 sqM) Est GFR (CKD-EPI)NonAf 64 (>60 ml/min/1.73 sqM) Glucose 106 H (74-99) mg/dL Calcium 9.3 (8.4-10.2) mg/dL Magnesium (1.6-2.3) mg/dL Total Bilirubin 0.7 (0.2-1.3) mg/dL AST 75 H (14-36) U/L ALT 47 H (4-34) U/L Alkaline Phosphatase 83 (38-126) U/L Troponin I (0.000-0.034) ng/mL Total Protein 7.1 (6.3-8.2) g/dL Albumin 4.6 (3.5-5.0) g/dL 05/16/22 05/16/22 Range/Units 21:26 22:08 WBC (3.8-10.6) k/uL RBC (3.80-5.40) m/uL Hgb (11.4-16.0) gm/dL Hct (34.0-46.0) % MCV (80.0-100.0) fL MCH (25.0-35.0) pg MCHC (31.0-37.0) g/dL RDW (11.5-15.5) % Plt Count (150-450) k/uL MPV Neutrophils % % Lymphocytes % % Monocytes % % Eosinophils % % Basophils % % Neutrophils # (1.3-7.7) k/uL Lymphocytes # (1.0-4.8) k/uL Monocytes # (0-1.0) k/uL Eosinophils # (0-0.7) k/uL Basophils # (0-0.2) k/uL PT (9.0-12.0) sec INR (<1.2) APTT (22.0-30.0) sec Sodium (137-145) mmol/L Potassium (3.5-5.1) mmol/L Chloride (98-107) mmol/L Carbon Dioxide (22-30) mmol/L Anion Gap mmol/L BUN (7-17) mg/dL Creatinine (0.52-1.04) mg/dL Est GFR (CKD-EPI)AfAm (>60 ml/min/1.73 sqM) Est GFR (CKD-EPI)NonAf (>60 ml/min/1.73 sqM) Glucose (74-99) mg/dL Calcium (8.4-10.2) mg/dL Magnesium 1.9 (1.6-2.3) mg/dL Total Bilirubin (0.2-1.3) mg/dL AST (14-36) U/L ALT (4-34) U/L Alkaline Phosphatase (38-126) U/L Troponin I 0.048 H* (0.000-0.034) ng/mL Total Protein (6.3-8.2) g/dL Albumin (3.5-5.0) g/dL - Radiology Data Radiology results: report reviewed (Chest x-rays negative for acute disease), image reviewed Critical Care Time Critical Care Time: Yes Total Critical Care Time: 31 Disposition Clinical Impression: Tachycardia, Palpitations, Atrial fibrillation, Headache, Hypertensive urgency, Elevated troponin Disposition: ADMITTED IP TO THIS HOSP Condition: Fair Is patient prescribed a controlled substance at d/c from ED?: No Referrals: Susi Pizarro MD [Primary Care Provider] - 1-2 days Time of Disposition: 23:50
--- NOTE | 2022-05-16 21:55 | XR ---
EXAMINATION TYPE: XR chest 1V DATE OF EXAM: 05/16/2022 COMPARISON: 01/24/2020 HISTORY: Atrial fibrillation chest pain TECHNIQUE: Single view FINDINGS: There is no heart failure nor confluent pneumonic infiltrate. Costophrenic angles are clear . There are no hilar masses. Thoracic aorta is atheromatous. No pleural effusion. IMPRESSION: No active cardiopulmonary disease. No change.
[2022-05-16] MEDS ORDERED: LABETALOL SYRINGE 5 MG/ML IVP STA (22:09)
--- NOTE | 2022-05-16 22:30 | CT ---
EXAMINATION TYPE: CT brain wo con DATE OF EXAM: 05/16/2022 COMPARISON: None HISTORY: CHAVEZ. High BP and HR CT DLP: 1194.1 mGycm Automated exposure control for dose reduction was used. Images obtained of the brain without contrast. There is some cerebral cortical atrophy. There is no mass effect or midline shift. No sign of intracr anial hemorrhage calvarium is intact. There is normal aeration of the mastoid sinuses. Skull base is intact. IMPRESSION: Negative unenhanced head CT scan. No change.
[2022-05-16] MEDS ORDERED: NALOXONE 0.4 MG/ML 1 ML VIAL IV PRN (23:41)
[2022-05-16] MEDS ORDERED: ONDANSETRON 4 MG/2 ML VIAL IVP PRN (23:41)
[2022-05-16] MEDS ORDERED: MORPHINE SULFATE 4 MG/ML SYRINGE IV PRN (23:41)
[2022-05-16] MEDS ORDERED: KETOROLAC 15 MG/ML 1 ML VIAL IVP STA (23:42)
[2022-05-16] MEDS ORDERED: PROCHLORPERAZINE INJ 10 MG/2 ML VIAL IVP STA (23:42)
[2022-05-16] MEDS ORDERED: diphenhydrAMINE 50 MG/ML 1 ML VIAL IVP STA (23:42)
[2022-05-16] MEDS ORDERED: SODIUM CHLORIDE 0.9% 1,000 ML IV SCH (23:45)
[2022-05-17] MEDS ORDERED: LORazepam 2 MG/ML INJ IV STA (02:26)
[2022-05-17 08:04] VITALS: RESP 16
--- NOTE | 2022-05-17 08:41 | P.CRDCN ---
History of Present Illness Consult date: 05/17/22 Chief complaint: Headache History of present illness: The patient is a pleasant 86-year-old female patient with a past medical history significant for permanent atrial fibrillation as well as hypertension and dyslipidemia as well as chronic kidney disease who we are asked to see as a consult here in the ER for further evaluation of abnormal cardiac enzymes. The patient was in her usual state of health yesterday when she started experiencing severe headache. She checked her pressure and that was decided to come to the emergency department for further evaluation. She stated that she has been compliant with all of her medications including her blood pressure medications. She did not have any symptoms of chest pain or chest discomfort and no shortness of breath and no feeling of heart racing or fluttering and no presyncope or syncope. She underwent workup including an EKG and that showed atrial fibrillation with overall controlled heart rate. She underwent cardiac enzymes for some reason that came in to be slightly abnormal but appears to be flat across the board. The patient pressure has improved after she presented to the hospital. Currently she is stable hemodynamically. Past Medical History Past Medical History: Atrial Fibrillation, Hyperlipidemia, Hypertension, Osteoarthritis (OA), Rheumatoid Arthritis (RA) Additional Past Medical History / Comment(s): VARICOSE VEINS, ENVIRONMENTAL ALLERGIES, SINUS DRAINAGE WITH COUGH- STATES SHE SPOKE WITH PGeri AT [facility]. STATES SHE WEARS SPECIAL SHOE LEFT FOOT AND USES CANE. History of Any Multi-Drug Resistant Organisms: None Reported Past Surgical History: Appendectomy, Hysterectomy, Joint Replacement, Orthopedic Surgery Additional Past Surgical History / Comment(s): left hip replacement, HEMMORHOIDS, LEFT CARPAL TUNNEL , BUNIONS, FATTY TUMOR RIGHT BREAST, LEFT GREAT TOE, CATARACTS. Past Anesthesia/Blood Transfusion Reactions: Motion Sickness Additional Past Anesthesia/Blood Transfusion Reaction / Comment(s): "TAKES A LONG TIME TO WAKE UP" Past Psychological History: No Psychological Hx Reported Smoking Status: Never smoker Past Alcohol Use History: None Reported Past Drug Use History: None Reported - Past Family History Brother(s) Family Medical History: Cancer Sister(s) Family Medical History: Cancer Daughter(s) Additional Family Medical History / Comment(s): MULTIPLE SCLEROSIS- . Medications and Allergies Home Medications Medication Instructions Recorded Confirmed Type Cyanocobalamin [Vitamin B-12] 500 mcg PO SA 06/19/17 01/29/21 History Metoprolol Succinate [Toprol XL] 12.5 mg PO QAM 06/19/17 01/29/21 History Warfarin Sodium [Coumadin] 2.5 mg PO DAILY #30 tablet 06/26/17 01/25/21 Rx Acetaminophen [Tylenol Extra 500 mg PO DAILY PRN 01/25/21 01/29/21 History Strength] Antibiotic 1 tab PO DIRECTED 01/25/21 History Arnica [place] 3 tab SL DAILY 01/25/21 History Calcium Carbonate/Vitamin D3 1 each PO DAILY 01/25/21 01/25/21 History [Calcium 500 mg-Vit D3 5 mcg (200 Unit)] Garlic 1 each PO DAILY 01/25/21 01/25/21 History Krill/[place]-3/Dha/Epa/Lipids 1 each PO DAILY 01/25/21 01/25/21 History [Krill Oil 350 mg Softgel] Lovastatin [Mevacor] 10 mg PO HS 01/25/21 01/29/21 History Magnesium 300 mg PO DAILY 01/25/21 History Zinc 50 mg PO DAILY 01/25/21 01/25/21 History Ciprofloxacin HCl [Cipro] 250 mg PO BID 01/29/21 01/29/21 History HYDROcodone/APAP 5-325MG [[place] 1 - 2 tab PO Q6HR PRN #32 tab 01/29/21 Rx 5-325] Sennosides [Senokot] 2 tab PO DAILY PRN #60 tablet 01/29/21 Rx Allergies Allergy/AdvReac Type Severity Reaction Status Date / Time Sulfa (Sulfonamide Allergy Unknown Rash/Hives Verified 01/29/21 10:48 Antibiotics) alcohol AdvReac Unknown Rapid Verified 01/29/21 10:48 Heart Rate, Flushed face Physical Exam Vitals: Vital Signs Temp Pulse Resp BP Pulse Ox 05/17/22 08:00 72 16 120/66 95 05/17/22 05:28 76 18 155/90 98 05/17/22 02:06 75 16 157/84 96 05/16/22 23:24 70 18 138/88 98 05/16/22 22:13 150/106 05/16/22 20:33 98.1 F 100 16 172/100 98 Intake and Output 05/16/22 05/17/22 05/17/22 22:59 06:59 14:59 Other: Weight 68.039 kg - Constitutional General appearance: no acute distress - Respiratory Respiratory: bilateral: CTA - Cardiovascular Rhythm: regular Heart sounds: normal: S1, S2 Results 05/16/22 21:26 05/16/22 21:26 Cardiac Enzymes 05/16/22 05/16/22 05/17/22 Range/Units 21:26 21:26 00:57 AST 75 H (14-36) U/L Troponin I 0.048 H* 0.054 H* (0.000-0.034) ng/mL 05/17/22 Range/Units 04:40 AST (14-36) U/L Troponin I 0.052 H* (0.000-0.034) ng/mL Coagulation 05/16/22 Range/Units 21:26 PT 15.5 H (9.0-12.0) sec APTT 31.1 H (22.0-30.0) sec CBC 05/16/22 Range/Units 21:26 WBC 7.2 (3.8-10.6) k/uL RBC 4.69 (3.80-5.40) m/uL Hgb 14.9 (11.4-16.0) gm/dL Hct 43.6 (34.0-46.0) % Plt Count 204 (150-450) k/uL Comprehensive Metabolic Panel 05/16/22 Range/Units 21:26 Sodium 130 L (137-145) mmol/L Potassium 4.4 (3.5-5.1) mmol/L Chloride 93 L (98-107) mmol/L Carbon Dioxide 25 (22-30) mmol/L BUN 26 H (7-17) mg/dL Creatinine 0.83 (0.52-1.04) mg/dL Glucose 106 H (74-99) mg/dL Calcium 9.3 (8.4-10.2) mg/dL AST 75 H (14-36) U/L ALT 47 H (4-34) U/L Alkaline Phosphatase 83 (38-126) U/L Total Protein 7.1 (6.3-8.2) g/dL Albumin 4.6 (3.5-5.0) g/dL Current Medications Generic Name Dose Route Start Last Admin Trade Name Freq PRN Reason Stop Dose Admin Sodium Chloride 1,000 mls @ 20 mls/hr 05/16/22 23:45 05/17/22 00:57 Saline 0.9% IV 20 mls/hr .Q24H HERMELINDO Administration Morphine Sulfate 4 mg 05/16/22 23:41 Morphine Sulfate 4 Mg/Ml Syringe IV Q4HR PRN Severe Pain (Scale 7 to 10) Naloxone HCl 0.2 mg 05/16/22 23:41 Naloxone 0.4 Mg/Ml 1 Ml Vial IV Q2M PRN Opioid Reversal Ondansetron HCl 4 mg 05/16/22 23:41 Ondansetron 4 Mg/2 Ml Vial IVP Q8HR PRN Nausea And Vomiting Intake and Output 05/16/22 05/17/22 05/17/22 22:59 06:59 14:59 Other: Weight 68.039 kg 05/16/22 21:26 05/16/22 21:26 Assessment and Plan Assessment: Assessment #1 hypertension emergency #2 evidence of myocardial injury likely secondary to hypertension emergency. No evidence of ischemia clinically or by EKG #3 permanent atrial fibrillation with controlled heart rate #4 chronic kidney disease Plan #1 obtain an echocardiogram for further risk stratification and assess ejection fraction and for any wall motion abnormalities #2 consider medical treatment for the abnormal troponin in the light of abnormal kidney function and absence of any symptoms of chest pain or chest discomfort #3 follow-up with the patient
--- NOTE | 2022-05-17 11:50 | P.DS ---
Providers Date of admission: 05/16/22 23:41 Attending physician: Ranulfo Castaneda Consults: 05/16/22 23:41 Consult Physician Routine Consulting Provider: Frank Cuadra Consult Reason/Comments: elevTrop Do you want consulting provider notified?: Yes Primary care physician: Susi Pizarro [facility] Course: Refer to my history of present illness for further details Patient Condition at Discharge: Fair Plan - Discharge Summary New Discharge Prescriptions: New Warfarin [Coumadin] 3 mg PO DAILY #30 tab Continue Cyanocobalamin [Vitamin B-12] 500 mcg PO SA Krill/[place]-3/Dha/Epa/Lipids [Krill Oil 350 mg Softgel] 1 each PO DAILY Garlic 1 tab PO DAILY Fexofenadine HCl [Hailey Allergy] 180 mg PO DAILY PRN PRN Reason: Allergy Symptoms Losartan [Cozaar] 75 mg PO DAILY Fluticasone Nasal [place] [Flonase Nasal [place]] 1 - 2 spr EA NOSTRIL BID PRN PRN Reason: Allergy Symptoms Calcium/Magnesium/Sinc/Vitamin D3 1 tab PO DAILY Aspirin EC [Ecotrin Low Dose] 81 mg PO DAILY [place] 30x 1 tab PO TID Ezetimibe [Zetia] 10 mg PO DAILY Changed Metoprolol Tartrate [Lopressor] 25 mg PO HS #0 Discontinued Warfarin Sodium [Coumadin] 2.5 mg PO HS Discharge Medication List Cyanocobalamin [Vitamin B-12] 500 mcg PO SA 06/19/17 [History] Garlic 1 tab PO DAILY 01/25/21 [History] Krill/[place]-3/Dha/Epa/Lipids [Krill Oil 350 mg Softgel] 1 each PO DAILY 01/25/21 [History] Arnica [place] 30x 1 tab PO TID 05/17/22 [History] Aspirin EC [Ecotrin Low Dose] 81 mg PO DAILY 05/17/22 [History] Calcium/Magnesium/Sinc/Vitamin D3 1 tab PO DAILY 05/17/22 [History] Ezetimibe [Zetia] 10 mg PO DAILY 05/17/22 [History] Fexofenadine HCl [Hailey Allergy] 180 mg PO DAILY PRN 05/17/22 [History] Fluticasone Nasal [place] [Flonase Nasal [place]] 1 - 2 spr EA NOSTRIL BID PRN 05/17/22 [History] Losartan [Cozaar] 75 mg PO DAILY 05/17/22 [History] Metoprolol Tartrate [Lopressor] 25 mg PO HS #0 05/17/22 [Rx] Warfarin [Coumadin] 3 mg PO DAILY #30 tab 05/17/22 [Rx] Follow up Appointment(s)/Referral(s): Susi Pizarro MD [Primary Care Provider] - 3 Days Ambulatory/Diagnostic Orders: Prothrombin Time INR [LAB.AMB] Time Frame: 3 Days, Location: None Selected Discharge Disposition: HOME SELF-CARE
--- NOTE | 2022-05-17 11:50 | P.HPIM ---
History of Present Illness Patient ability to-year-old female came with complaints of elevated blood pressure and patient checked her blood pressure it was about 200 systolic because of which she called the daughter who brought her to ER. Patient was quite anxious at the time patient heart rate is 100. Patient is found to be dehydrated with serum sodium of 1:30 received IV fluids overnight patient is presently receiving IV fluids patient was given a dose of labetalol after which her blood pressure has come down her heart rate is in 60s at this time patient takes only 12.5 extended release metoprolol patient takes on 5 mg of losartan for blood pressure although patient blood pressure is well controlled is not requiring any of the blood pressure medications that affect of labetalol is probably worn out by now in spite of which her blood pressure remained stable. Patient was also complaining of for sinus congestion patient does have history of asthma and seasonal ALLERGIES for which she takes Hailey. Patient was evaluated by cardiology to obtain echo results of which are pending a cardiology recommended 1 more night of monitoring same thing was advised to the patient although patient and daughter preferred to go home. Patient has mildly elevated AST and ALT which is nonspecific elevation will not require any further intervention at this time. Discussed with cardiology who is agreeable and discharging the patient patient will be discharged today. Patient does have a history of atrial fibrillation presently in A. fib chronic A. fib INR is only 1.5 patient takes Coumadin at home patient takes 2.5 mg of Coumadin which will be increased to 3 mg with repeat INR check in 3 days. REVIEW OF SYSTEMS: CONSTITUTIONAL: No fever, no malaise, no fatigue. HEENT: No recent visual problems or hearing problems. Denied any sore throat. CARDIOVASCULAR: No chest pain, orthopnea, PND, no syncope. PULMONARY: No shortness of breath, no cough, no hemoptysis. GASTROINTESTINAL: No diarrhea, no nausea, no vomiting, no abdominal pain. NEUROLOGICAL: No headaches, no weakness, no numbness. HEMATOLOGICAL: Denies any bleeding or petechiae. GENITOURINARY: Denies any burning micturition, frequency, or urgency. MUSCULOSKELETAL/RHEUMATOLOGICAL: Denies any joint pain, swelling, or any muscle pain. ENDOCRINE: Denies any polyuria or polydipsia. The rest of the 14-point review of systems is negative. PHYSICAL EXAMINATION: GENERAL: The patient is alert and oriented x3, not in any acute distress. Well developed, well nourished. HEENT: Pupils are round and equally reacting to light. EOMI. No scleral icterus. No conjunctival pallor. Normocephalic, atraumatic. No pharyngeal erythema. No thyromegaly. CARDIOVASCULAR: S1 and S2 present. No murmurs, rubs, or gallops. Irregularly irregular rhythm PULMONARY: Chest is clear to auscultation, no wheezing or crackles. ABDOMEN: Soft, nontender, nondistended, normoactive bowel sounds. No palpable organomegaly. MUSCULOSKELETAL: No joint swelling or deformity. EXTREMITIES: No cyanosis, clubbing, or pedal edema. NEUROLOGICAL: Gross neurological examination did not reveal any focal deficits. SKIN: No rashes. Assessment and plan -hypertensive urgency: Probably because of an episode of anxiety. Considering that the patient and family concerns of increased heart rate I'm increasing the dose of metoprolol sustained release to 25 mg. Patient was asked to check the blood pressure at home and if it's consistently a bowl 1 40 x 90 patient was advised to take 100 mg of losartan instead of 75. -Mild a stable elevation of her troponin secondary to atrial fibrillation -Hypovolemic hyponatremia for which patient received IV fluids. -Persistent atrial fibrillation presently rate controlled increasing dose of metoprolol as mentioned above -Subtotal cannot increasing dose of Coumadin -Minimal or specific elevation of liver enzymes no further intervention is necessary probably liver enzymes can be repeated in about couple weeks -Rheumatoid arthritis Patient will be discharged today with a follow-up INR in about 3 days increasing the dose of Coumadin as mentioned above Past Medical History Past Medical History: Atrial Fibrillation, Hyperlipidemia, Hypertension, Osteoarthritis (OA), Rheumatoid Arthritis (RA) Additional Past Medical History / Comment(s): VARICOSE VEINS, ENVIRONMENTAL ALLERGIES, SINUS DRAINAGE WITH COUGH- STATES SHE SPOKE WITH Scott AT [facility] [email or web address]. STATES SHE WEARS SPECIAL SHOE LEFT FOOT AND USES CANE. History of Any Multi-Drug Resistant Organisms: None Reported Past Surgical History: Appendectomy, Hysterectomy, Joint Replacement, Orthopedic Surgery Additional Past Surgical History / Comment(s): left hip replacement, HEMMORHOIDS, LEFT CARPAL TUNNEL , BUNIONS, FATTY TUMOR RIGHT BREAST, LEFT GREAT TOE, CATARACTS. Past Anesthesia/Blood Transfusion Reactions: Motion Sickness Additional Past Anesthesia/Blood Transfusion Reaction / Comment(s): "TAKES A LONG TIME TO WAKE UP" Past Psychological History: No Psychological Hx Reported Smoking Status: Never smoker Past Alcohol Use History: None Reported Past Drug Use History: None Reported - Past Family History Brother(s) Family Medical History: Cancer Sister(s) Family Medical History: Cancer Daughter(s) Additional Family Medical History / Comment(s): MULTIPLE SCLEROSIS- . Medications and Allergies Home Medications Medication Instructions Recorded Confirmed Type Cyanocobalamin [Vitamin B-12] 500 mcg PO SA 06/19/17 05/17/22 History Garlic 1 tab PO DAILY 01/25/21 05/17/22 History Krill/[place]-3/Dha/Epa/Lipids 1 each PO DAILY 01/25/21 05/17/22 History [Krill Oil 350 mg Softgel] Arnica [place] 30x 1 tab PO TID 05/17/22 05/17/22 History Aspirin EC [Ecotrin Low Dose] 81 mg PO DAILY 05/17/22 05/17/22 History Calcium/Magnesium/Sinc/Vitamin D3 1 tab PO DAILY 05/17/22 05/17/22 History Ezetimibe [Zetia] 10 mg PO DAILY 05/17/22 05/17/22 History Fexofenadine HCl [[place]iley Allergy] 180 mg PO DAILY PRN 05/17/22 05/17/22 History Fluticasone Nasal [place] [Flonase 1 - 2 spr EA NOSTRIL BID PRN 05/17/22 05/17/22 History Nasal [place]] Losartan [Cozaar] 75 mg PO DAILY 05/17/22 05/17/22 History Metoprolol Tartrate [Lopressor] 25 mg PO HS #0 05/17/22 05/17/22 Rx Warfarin [Coumadin] 3 mg PO DAILY #30 tab 05/17/22 Rx Allergies Allergy/AdvReac Type Severity Reaction Status Date / Time Sulfa (Sulfonamide Allergy Unknown Rash/Hives Verified 01/29/21 10:48 Antibiotics) alcohol AdvReac Unknown Rapid Verified 01/29/21 10:48 Heart Rate, Flushed face Physical Exam Vitals: Vital Signs Temp Pulse Resp BP Pulse Ox 05/17/22 08:00 72 16 120/66 95 05/17/22 05:28 76 18 155/90 98 05/17/22 02:06 75 16 157/84 96 05/16/22 23:24 70 18 138/88 98 05/16/22 22:13 150/106 05/16/22 20:33 98.1 F 100 16 172/100 98 Intake and Output 05/16/22 05/17/22 05/17/22 22:59 06:59 14:59 Other: Weight 68.039 kg Results CBC & Chem 7: 05/16/22 21:26 05/16/22 21:26 Labs: Abnormal Lab Results - Last 24 Hours (Table) 05/16/22 05/16/22 05/16/22 Range/Units 21:26 21:26 21:26 PT 15.5 H (9.0-12.0) sec INR 1.5 H (<1.2) APTT 31.1 H (22.0-30.0) sec Sodium 130 L (137-145) mmol/L Chloride 93 L (98-107) mmol/L BUN 26 H (7-17) mg/dL Glucose 106 H (74-99) mg/dL AST 75 H (14-36) U/L ALT 47 H (4-34) U/L Troponin I 0.048 H* (0.000-0.034) ng/mL 05/17/22 05/17/22 Range/Units 00:57 04:40 PT (9.0-12.0) sec INR (<1.2) APTT (22.0-30.0) sec Sodium (137-145) mmol/L Chloride (98-107) mmol/L BUN (7-17) mg/dL Glucose (74-99) mg/dL AST (14-36) U/L ALT (4-34) U/L Troponin I 0.054 H* 0.052 H* (0.000-0.034) ng/mL
[2022-05-17 12:44] VITALS: BP 132/72; PULSE 79; TEMP 98.6
--- NOTE | 2022-05-19 10:13 | CA ---
Transthoracic Echo Report Name: Gayle Cardenas Age: 86 Gender: F : 1935 Exam Date: 05/17/2022 10:22 Exam Location: [facility] Ht (in): 65 Wt (lb): 150 Ordering Physician: Timothy Monk MD Attending/Referring Phys: Litigation Attorney Lis Alcantara RDCS Procedure CPT: Indications: Hypertension Cardiac Hx: Technical Quality: Fair Contrast 1: Total Dose (mL): Contrast 2: Total Dose (mL): MEASUREMENTS (Male / Female) Normal Values 2D ECHO LV Diastolic Diameter PLAX 3.6 cm 4.2 - 5.9 / 3.9 - 5.3 cm LV Systolic Diameter PLAX 3.1 cm IVS Diastolic Thickness 1.3 cm 0.6 - 1.0 / 0.6 - 0.9 cm LVPW Diastolic Thickness 1.3 cm 0.6 - 1.0 / 0.6 - 0.9 cm LV Relative Wall Thickness 0.7 RV Internal Dim ED PLAX 3.2 cm LA Volume 75.8 cm??? 18 - 58 / 22 - 52 cm??? M-MODE Aortic Root Diameter MM 3.0 cm LA Systolic Diameter MM 4.7 cm LA Ao Ratio MM 1.6 AV Cusp Separation MM 2.0 cm DOPPLER AV Peak Velocity 129.2 cm/s AV Peak Gradient 6.7 mmHg AI Peak Velocity 302.6 cm/s AI Peak Gradient 36.6 mmHg AI Pressure Half Time 865.9 ms LVOT Peak Velocity 63.3 cm/s LVOT Peak Gradient 1.6 mmHg MV Area PHT 3.0 cm??? Mitral E Point Velocity 97.9 cm/s Mitral A Point Velocity 0.7 cm/s Mitral E to A Ratio 141.0 MV Deceleration Time 253.2 ms TR Peak Velocity 381.6 cm/s TR Peak Gradient 58.2 mmHg Right Atrial Pressure 15.0 mmHg Pulmonary Artery Systolic Pressu 73.2 mmHg Right Ventricular Systolic Press 73.2 mmHg FINDINGS Left Ventricle Mildly increased left ventricular wall thickness. Normal left ventricular systolic function with no obvious regional wall motion abnormalities. Left ventricular ejection fraction is estimated at 50 %. Right Ventricle Normal right ventricular size and function. Severe pulmonary hypertension. Right Atrium Mild right atrial dilatation. Left Atrium Severely increased left atrial volume. Mitral Valve Mitral valve thickened. Mild mitral annular calcification. Moderate mitral regurgitation. Aortic Valve Aortic valve sclerosis. No aortic stenosis. Mild aortic regurgitation. Tricuspid Valve Structurally normal tricuspid valve. Moderate tricuspid regurgitation. Pulmonic Valve Mild pulmonic regurgitation. Pericardium No pericardial effusion. Aorta Normal size aortic root and proximal ascending aorta. CONCLUSIONS Normal biventricular dimension and systolic function. The LV EF is about 50% Moderate mitral regurgitation. Thickened anterior and posterior mitral leaflet Moderate tricuspid regurgitation Previewed by: Dr. Timothy Monk MD (Electronically Signed) Final Date: 18 May 2022 10:14
== END 2022-05-17 12:30 | disposition home or self-care (01) ==
LOC: EC 20:19 → SUPCPDRO 20:19 → 3SCARD 23:41
PROVIDERS: ADMIT Hospitalist; ATTEND Hospitalist
DX: I48.21 Permanent atrial fibrillation (principal); I16.1 Hypertensive emergency; I5A Non-ischemic myocardial injury (non-traumatic); E86.1 Hypovolemia; E87.1 Hypo-osmolality and hyponatremia; E78.5 Hyperlipidemia, unspecified; I70.0 Atherosclerosis of aorta; I12.9 Hypertensive chronic kidney disease with stage 1 through stage 4 chronic kidney disease, or unspecified chronic kidney disease; N18.9 Chronic kidney disease, unspecified; J45.909 Unspecified asthma, uncomplicated; F41.9 Anxiety disorder, unspecified; I27.20 Pulmonary hypertension, unspecified; M06.9 Rheumatoid arthritis, unspecified; I08.3 Combined rheumatic disorders of mitral, aortic and tricuspid valves; I37.1 Nonrheumatic pulmonary valve insufficiency; Z90.710 Acquired absence of both cervix and uterus; Z79.899 Other long term (current) drug therapy; Z88.2 Allergy status to sulfonamides; Z96.642 Presence of left artificial hip joint; Z82.0 Family history of epilepsy and other diseases of the nervous system; Z80.9 Family history of malignant neoplasm, unspecified; Z79.01 Long term (current) use of anticoagulants; Z79.82 Long term (current) use of aspirin
CPT/HCPCS: 96361; 96375; 96374; 99291; 36415; 93005; 93306; 80053; 83735; 84484 ×2; 85025; 85610; 85730; 71045; 70450; G0378; J2060; J1200; J0780; J1885

== ENCOUNTER 2023-07-10 15:51 | Inpatient (IN) | payer MEDICARE, BC ==
--- NOTE | 2023-07-10 16:54 | XR ---
EXAMINATION TYPE: XR chest 2V DATE OF EXAM: 07/10/2023 COMPARISON: 05/16/2022 HISTORY: 87 year-old female shortness of breath, difficulty breathing TECHNIQUE: PA and lateral views FINDINGS: Heart is mildly enlarged. Interstitial prominence is unchanged. Hyperinflation. No consolidation or p leural effusion seen. IMPRESSION: COPD and mild cardiomegaly. No definite acute process.
[2023-07-10 17:10] LABS: Basophils % (A) 0 %; Eosinophils % (A) 0 %; HCT 39.9 % (34.0-46.0); HGB 13.3 gm/dL (11.4-16.0); Lymphocytes # (A) 0.4 k/uL (1.0-4.8); Lymphocytes % (A) 5 %; MCHC 33.3 g/dL (31.0-37.0); Mean Platelet Volume 8.2; Monocytes # (A) 0.5 k/uL (0-1.0); Monocytes % (A) 7 %; Neutrophils # (A) 6.6 k/uL (1.3-7.7); Neutrophils % (A) 87 %; Platelet Count 166 k/uL (150-450); RBC 4.29 m/uL (3.80-5.40); RDW 13.4 % (11.5-15.5); WBC 7.6 k/uL (3.8-10.6)
[2023-07-10 17:29] LABS: INR 1.6 (<1.2); Partial Thromboplastin Time 32.1 sec (22.0-30.0); Prothrombin Time 16.7 sec (10.0-12.5)
[2023-07-10 17:39] LABS: ALT 51 U/L (4-34); AST 73 U/L (14-36); African American GFR (CKD) 77 (>60 ml/min/1.73 sqM); Albumin 4.4 g/dL (3.5-5.0); Alkaline Phosphatase 83 U/L (38-126); Anion Gap 14 mmol/L; Blood Urea Nitrogen 18 mg/dL (7-17); Calcium 8.8 mg/dL (8.4-10.2); Carbon Dioxide 20 mmol/L (22-30); Chloride 91 mmol/L (98-107); Glucose 111 mg/dL (74-99); Non-African American GFR(CKD) 67 (>60 ml/min/1.73 sqM); Potassium 4.1 mmol/L (3.5-5.1); Sodium 125 mmol/L (137-145); Total Protein 7.2 g/dL (6.3-8.2)
--- NOTE | 2023-07-10 19:16 | ED ---
SOB HPI - General Chief Complaint: Shortness of Breath Stated Complaint: sob having a hard time breathing sitting down Time Seen by Provider: 07/10/23 17:18 Source: patient, family Mode of arrival: ambulatory Limitations: no limitations - History of Present Illness Initial Comments: 87 year old female with past medical history of A. fib, hypertension, h yperlipidemia who presents to the emergency department shortness of breath. States that her symptoms started yesterday. She has been unable to lie flat due to the increased worker breathing. She denies history of congestive heart failure. Does have a history of A. fib. Also admits to underlying asthma but does not use any inhalers. She has had a low-grade fever. Multiple sick contacts within her family. Denies any chest pain. No history of coronary disease. No other alleviating, precipitating or modifying factors - Related Data Home Medications Medication Instructions Recorded Confirmed Cyanocobalamin [Vitamin B-12] 500 mcg PO SA 06/19/17 07/10/23 Garlic 1 tab PO DAILY 01/25/21 07/10/23 Krill/[place]-3/Dha/Epa/Lipids 1 cap PO DAILY 01/25/21 07/10/23 [Krill Oil 350 mg Softgel] Aspirin EC [Ecotrin Low Dose] 40.5 mg PO DAILY 05/17/22 07/10/23 Ezetimibe [Zetia] 10 mg PO HS 05/17/22 07/10/23 Fexofenadine HCl [Hailey Allergy] 180 mg PO DAILY PRN 05/17/22 07/10/23 Calcium/Magnesium/Zinc/Vitamin D 1 tab PO HS 07/10/23 07/10/23 Cholecalciferol [Vitamin D3 (25 50 mcg PO DAILY 07/10/23 07/10/23 Mcg = 1000 Iu)] Losartan Potassium [Cozaar] 100 mg PO DAILY 07/10/23 07/10/23 Magnesium 250 mg PO HS 07/10/23 07/10/23 Ubidecarenone [Coenzyme Q10] 200 mg PO HS 07/10/23 07/10/23 Warfarin [Coumadin] 1.5 mg PO SUTUWEFR@2100 07/10/23 07/10/23 Warfarin [Coumadin] 3 mg PO MOTHSA@2100 07/10/23 07/10/23 Previous Rx's Medication Instructions Recorded Metoprolol Tartrate [Lopressor] 25 mg PO HS #0 05/17/22 Allergies Allergy/AdvReac Type Severity Reaction Status Date / Time Sulfa (Sulfonamide Allergy Unknown Rash/Hives Verified 07/10/23 19:35 Antibiotics) alcohol AdvReac Unknown Rapid Verified 07/10/23 19:35 Heart Rate, Flushed face Review of Systems ROS Statement: Those systems with pertinent positive or pertinent negative responses have been documented in the HPI. ROS Other: All systems not noted in ROS Statement are negative. Past Medical History Past Medical History: Atrial Fibrillation, Hyperlipidemia, Hypertension, Osteoarthritis (OA), Rheumatoid Arthritis (RA) Additional Past Medical History / Comment(s): VARICOSE VEINS, ENVIRONMENTAL ALLERGIES, SINUS DRAINAGE WITH COUGH- STATES SHE SPOKE WITH P.A. AT [facility]. STATES SHE WEARS SPECIAL SHOE LEFT FOOT AND USES CANE. History of Any Multi-Drug Resistant Organisms: None Reported Past Surgical History: Appendectomy, Hysterectomy, Joint Replacement, Orthopedic Surgery Additional Past Surgical History / Comment(s): left hip replacement, HEMMORHOIDS, LEFT CARPAL TUNNEL , BUNIONS, FATTY TUMOR RIGHT BREAST, LEFT GREAT TOE, CATARACTS. Past Anesthesia/Blood Transfusion Reactions: Motion Sickness Additional Past Anesthesia/Blood Transfusion Reaction / Comment(s): "TAKES A LONG TIME TO WAKE UP" Past Psychological History: No Psychological Hx Reported Smoking Status: Never smoker Past Alcohol Use History: None Reported Past Drug Use History: None Reported - Past Family History Brother(s) Family Medical History: Cancer Sister(s) Family Medical History: Cancer Daughter(s) Additional Family Medical History / Comment(s): MULTIPLE SCLEROSIS- . General Exam Limitations: no limitations General appearance: alert, in no apparent distress Head exam: Present: atraumatic, normocephalic, normal inspection Eye exam: Present: normal appearance, PERRL, EOMI. Absent: scleral icterus, conjunctival injection, periorbital swelling ENT exam: Present: normal exam, mucous membranes moist Neck exam: Present: normal inspection. Absent: tenderness, meningismus, lymphadenopathy Respiratory exam: Present: rales, decreased breath sounds. Absent: respiratory distress, wheezes, rhonchi, stridor Cardiovascular Exam: Present: regular rate, tachycardia, normal heart sounds. Absent: systolic murmur, diastolic murmur, rubs, gallop, clicks GI/Abdominal exam: Present: soft, normal bowel sounds. Absent: distended, tenderness, guarding, rebound, rigid Extremities exam: Present: normal inspection, full ROM, normal capillary refill. Absent: tenderness, pedal edema, joint swelling, calf tenderness Back exam: Present: normal inspection Neurological exam: Present: alert, oriented X3, CN II-XII intact Psychiatric exam: Present: normal affect, normal mood Skin exam: Present: warm, dry, intact, normal color. Absent: rash Course Vital Signs 07/10/23 07/10/23 07/10/23 15:54 15:59 19:41 Temperature 99.3 F 98.4 F Pulse Rate 80 98 90 Respiratory 24 20 17 Rate Blood Pressure 107/72 207/105 151/98 O2 Sat by Pulse 96 96 Oximetry Medical Decision Making - Medical Decision Making Was pt. sent in by a medical professional or institution ([facility], CREW SCHEDULER, urgent care, hospital, or skilled nursing...) When possible be specific @ -No Did you speak to anyone other than the patient for history (EMS, parent, family, police, friend...)? What history was obtained from this source @ -spoke with the patient's family in regards to symptoms Did you review nursing and triage notes (agree or disagree)? Why? @ -I reviewed and agree with nursing and triage notes Were old charts reviewed (outside hosp., previous admission, EMS record, old EKG, old radiological studies, urgent care reports/EKG's, skilled nursing records)? Report findings @ -No old charts were reviewed Differential Diagnosis (chest pain, altered mental status, abdominal pain women, abdominal pain men, vaginal bleeding, weakness, fever, dyspnea, syncope, headache, dizziness, GI bleed, back pain, seizure, CVA, palpatations, mental health, musculoskeletal)? @ -Differential Dyspnea: Coronary syndrome, arrhythmia, tamponade, asthma, COPD, pulmonary embolism, pneumonia, pneumothorax, pulmonary effusion, anaphylaxis, diabetic ketoacidosis, flailed chest, pulmonary contusion, diaphragmatic rupture, anemia, neuromuscular, this is not meant to be an all-inclusive list. EKG interpreted by me (3pts min.). @ -yes and demonstrates A. fib with a rate of 77. QRS 101. QTC of 425. No acute ST segment elevations or depression X-rays interpreted by me (1pt min.). @ -yes and demonstrates hyperinflated lungs CT interpreted by me (1pt min.). @ -None done U/S interpreted by me (1pt. min.). @ -None done What testing was considered but not performed or refused? (CT, X-rays, U/S, labs)? Why? @ -None What meds were considered but not given or refused? Why? @ -None Did you discuss the management of the patient with other professionals (professionals i.e. , PA, CREW SCHEDULER, lab, RT, psych nurse, addiction social worker, electromechanical assembly technician, teacher, quality officer, employment case manager)? Give summary @ -Spoke with Loni from [facility] for admission Was smoking cessation discussed for >3mins.? @ -No Was critical care preformed (if so, how long)? @ -No Were there social determinants of health that impacted care today? How? (Homele ssness, low income, unemployed, alcoholism, drug addiction, transportation, low edu. Level, literacy, decrease access to med. care, detention, rehab)? @ -No Was there de-escalation of care discussed even if they declined (Discuss DNR or withdrawal of care, Hospice)? DNR status @ -No What co-morbidities impacted this encounter? (DM, HTN, Smoking, COPD, CAD, Cancer, CVA, ARF, Chemo, Hep., AIDS, mental health diagnosis, sleep apnea, morbid obesity)? @ -Atrial fibrillation Was patient admitted / discharged? Hospital course, mention meds given and route, prescriptions, significant lab abnormalities, going to OR and other pertinent info. @ -Admitted. Upon arrival patient was placed in room 4. Thorough history and physical exam was performed. IV was established and laboratory studies are conducted. BNP is elevated. Chest x-ray is performed and does not demonstrate any significant findings. Patient is Covid positive. She does have an elevated troponin. Results are discussed with the patient. She will be kept on her Coumadin at this time for anticoagulation. We will trend her troponins. Albuterol inhaler ordered for the Covid. I did give her 40 mg of Lasix for her elevated BNP and orthopnea. Results are discussed with Loni from [facility]. Patient will be admitted to reevaluate sodium levels after diuresis. Patient was agreeable to admission and she is currently pending about the floor Undiagnosed new problem with uncertain prognosis? @ -yes Drug Therapy requiring intensive monitoring for toxicity (Heparin, Nitro, Insulin, Cardizem)? @ -No Were any procedures done? @ -No Diagnosis/symptom? @ -Acute respiratory insufficiency, acute Covid infection, possible new onset CHF, elevated troponin Acute, or Chronic, or Acute on Chronic? @ -Acute Uncomplicated (without systemic symptoms) or Complicated (systemic symptoms)? @ -Complicated Side effects of treatment? @ -No Exacerbation, Progression, or Severe Exacerbation? @ -No Poses a threat to life or bodily function? How? (Chest pain, [place], [place], pneumonia, PE, COPD, DKA, ARF, appy, cholecystitis, CVA, Diverticulitis, Homicidal, Suicidal, threat to staff... and all critical care pts) @ -No - Lab Data Result diagrams: 07/10/23 16:07/10/23 16: Lab Results 07/10/23 07/10/23 07/10/23 Range/Units 16: 16: 16:23 WBC 7.6 (3.8-10.6) k/uL RBC 4.29 (3.80-5.40) m/uL Hgb 13.3 (11.4-16.0) gm/dL Hct 39.9 (34.0-46.0) % MCV 93.0 (80.0-100.0) fL MCH 31.0 (25.0-35.0) pg MCHC 33.3 (31.0-37.0) g/dL RDW 13.4 (11.5-15.5) % Plt Count 166 (150-450) k/uL MPV 8.2 Neutrophils % 87 % Lymphocytes % 5 % Monocytes % 7 % Eosinophils % 0 % Basophils % 0 % Neutrophils # 6.6 (1.3-7.7) k/uL Lymphocytes # 0.4 L (1.0-4.8) k/uL Monocytes # 0.5 (0-1.0) k/uL Eosinophils # 0.0 (0-0.7) k/uL Basophils # 0.0 (0-0.2) k/uL PT 16.7 H (10.0-12.5) sec INR 1.6 H (<1.2) APTT 32.1 H (22.0-30.0) sec Sodium 125 L (137-145) mmol/L Potassium 4.1 (3.5-5.1) mmol/L Chloride 91 L (98-107) mmol/L Carbon Dioxide 20 L (22-30) mmol/L Anion Gap 14 mmol/L BUN 18 H (7-17) mg/dL Creatinine 0.79 (0.52-1.04) mg/dL Est GFR (CKD-EPI)AfAm 77 (>60 ml/min/1.73 sqM) Est GFR (CKD-EPI)NonAf 67 (>60 ml/min/1.73 sqM) Glucose 111 H (74-99) mg/dL Calcium 8.8 (8.4-10.2) mg/dL Total Bilirubin 1.0 (0.2-1.3) mg/dL AST 73 H (14-36) U/L ALT 51 H (4-34) U/L Alkaline Phosphatase 83 (38-126) U/L Troponin I (0.000-0.034) ng/mL NT-Pro-B Natriuret Pep pg/mL Total Protein 7.2 (6.3-8.2) g/dL Albumin 4.4 (3.5-5.0) g/dL Influenza Type A (PCR) (Not Detectd) Influenza Type B (PCR) (Not Detectd) RSV (PCR) (Not Detectd) SARS-CoV-2 (PCR) (Not Detectd) 07/10/23 07/10/23 07/10/23 Range/Units 16:23 16:23 18:01 WBC (3.8-10.6) k/uL RBC (3.80-5.40) m/uL Hgb (11.4-16.0) gm/dL Hct (34.0-46.0) % MCV (80.0-100.0) fL MCH (25.0-35.0) pg MCHC (31.0-37.0) g/dL RDW (11.5-15.5) % Plt Count (150-450) k/uL MPV Neutrophils % % Lymphocytes % % Monocytes % % Eosinophils % % Basophils % % Neutrophils # (1.3-7.7) k/uL Lymphocytes # (1.0-4.8) k/uL Monocytes # (0-1.0) k/uL Eosinophils # (0-0.7) k/uL Basophils # (0-0.2) k/uL PT (10.0-12.5) sec INR (<1.2) APTT (22.0-30.0) sec Sodium (137-145) mmol/L Potassium (3.5-5.1) mmol/L Chloride (98-107) mmol/L Carbon Dioxide (22-30) mmol/L Anion Gap mmol/L BUN (7-17) mg/dL Creatinine (0.52-1.04) mg/dL Est GFR (CKD-EPI)AfAm (>60 ml/min/1.73 sqM) Est GFR (CKD-EPI)NonAf (>60 ml/min/1.73 sqM) Glucose (74-99) mg/dL Calcium (8.4-10.2) mg/dL Total Bilirubin (0.2-1.3) mg/dL AST (14-36) U/L ALT (4-34) U/L Alkaline Phosphatase (38-126) U/L Troponin I 0.045 H* (0.000-0.034) ng/mL NT-Pro-B Natriuret Pep 5620 pg/mL Total Protein (6.3-8.2) g/dL Albumin (3.5-5.0) g/dL Influenza Type A (PCR) Not Detected (Not Detectd) Influenza Type B (PCR) Not Detected (Not Detectd) RSV (PCR) Not Detected (Not Detectd) SARS-CoV-2 (PCR) Detected A (Not Detectd) Disposition Clinical Impression: Elevated troponin, Atrial fibrillation, Dyspnea, CHF (congestive heart failure), COVID-19, Hyponatremia Disposition: ADMITTED IP TO THIS [facility] Condition: Stable Is patient prescribed a controlled substance at d/c from ED?: No Time of Disposition: 19:26 Decision to Admit Reason: Admit from EC Decision Date: 07/10/23 Decision Time: 19:
[2023-07-10] MEDS ORDERED: NALOXONE 0.4 MG/ML 1 ML VIAL IV PRN (19:27)
[2023-07-10] MEDS ORDERED: FUROSEMIDE 10 MG/ML 4 ML VIAL IV STA (19:27)
[2023-07-10] MEDS ORDERED: WARFARIN 2 MG TAB PO ONE (21:00)
[2023-07-10] MEDS ORDERED: LORATADINE 10 MG TAB PO PRN (21:57)
[2023-07-10] MEDS ORDERED: NON FORMULARY DRUG (Ubidecarenone [Coenzyme Q10] 200 MG Capsule) PO SCH (22:00)
[2023-07-10] MEDS: METOPROLOL TARTRATE 25 MG TAB PO SCH (22:16)
[2023-07-10] MEDS: MAGNESIUM OXIDE 400 MG TAB PO SCH (22:16)
[2023-07-10] MEDS: EZETIMIBE 10 MG TAB PO SCH (22:16)
[2023-07-10] MEDS: CALCIUM CARB-VIT D 500 MG-5 MCG TAB PO SCH (22:16)
[2023-07-10] MEDS ORDERED: MAGNESIUM OXIDE 400 MG TAB PO SCH (22:30)
[2023-07-11] MEDS: ALBUTEROL HFA INHALER INHALATION SCH ×4 (08:22→20:36)
[2023-07-11] MEDS: ASPIRIN 81 MG PO SCH (08:50)
[2023-07-11] MEDS: CHOLECALCIFEROL 25 MCG (1000 IU) TABLET PO SCH (08:50)
[2023-07-11] MEDS: LOSARTAN 50 MG TAB PO SCH (08:50)
[2023-07-11] MEDS ORDERED: HEPARIN SODIUM 1,000 UN/ML (10ML VL) IV PRN ×2 (09:16→09:17)
[2023-07-11] MEDS ORDERED: HEPARIN SODIUM 1,000 UN/ML (10ML VL) IV ONE (09:17)
[2023-07-11] MEDS ORDERED: HEPARIN SOD,PORK IN 0.45% NACL 25,000 UNIT in 0.45% NACL 1 250ML.BAG IV SCH ×2 (09:30)
[2023-07-11] MEDS: ATORVASTATIN 20 MG TAB PO SCH ×2 (10:06→10:16)
[2023-07-11] MEDS: dexAMETHasone 2 MG TAB PO SCH (10:07)
[2023-07-11 11:17] LABS: Basophils % (A) 1 %; Eosinophils % (A) 0 %; HCT 44.1 % (34.0-46.0); HGB 14.4 gm/dL (11.4-16.0); Lymphocytes # (A) 0.6 k/uL (1.0-4.8); Lymphocytes % (A) 11 %; MCH 31.2 pg (25.0-35.0); MCHC 32.6 g/dL (31.0-37.0); MCV 95.7 fL (80.0-100.0); Mean Platelet Volume 9.1; Monocytes # (A) 0.5 k/uL (0-1.0); Monocytes % (A) 10 %; Neutrophils % (A) 76 %; Platelet Count 158 k/uL (150-450); RBC 4.61 m/uL (3.80-5.40); RDW 13.3 % (11.5-15.5); WBC 5.2 k/uL (3.8-10.6)
[2023-07-11 11:48] LABS: INR 3.1 (<1.2); Partial Thromboplastin Time 38.9 sec (22.0-30.0); Prothrombin Time 30.1 sec (10.0-12.5)
[2023-07-11 12:45] LABS: African American GFR (CKD) 70 (>60 ml/min/1.73 sqM); Anion Gap 18 mmol/L; Blood Urea Nitrogen 22 mg/dL (7-17); Carbon Dioxide 23 mmol/L (22-30); Chloride 89 mmol/L (98-107); Glucose 226 mg/dL (74-99); Non-African American GFR(CKD) 61 (>60 ml/min/1.73 sqM); Potassium 3.6 mmol/L (3.5-5.1); Sodium 130 mmol/L (137-145)
--- NOTE | 2023-07-11 13:52 | P.HPIM ---
History of Present Illness H&P Date: 07/11/23 History of present illness; patient is 87-year-old lady with past medical histor y significant for permanent atrial fibrillation,hypertension ,dyslipidemia ,chronic kidney disease who presented to the hospital because of worsening shortness of breath. Patient stated that she was all right yesterday when she started noticing that she was getting short of breath at rest. Patient denied any chest pain. Patient was unable to lay flat and was complaining of orthopnea . Denied any PND. There was no complain of swelling of feet. Patient was complaining of fevers at home. Patient has exposure to sick contacts at home. Denies any nausea, vomiting abdominal pain. Because of this shortness of breath, patient came to the ER Initial lab work done in the ER showed WBC 7.6, hemoglobin 13.3, platelet count 166, sodium 125, potassium 4.1, BUN 18, creatinine 0.79, glucose 111, AST 73, AST 51, troponin 0.045, proBNP 5620 Influenza A not detected Influenza B not detected RSV not detected COVID-19 detected EKG done in the ER showed heart rate of 77, no p waves no ST segment elevation or depression seen, no T-wave inversions seen. Chest x-ray done in the ER showed COPD and mild cardiac megaly, no definite acute process Patient admitted to internal medicine service REVIEW OF SYSTEMS: CONSTITUTIONAL: As mentioned in HPI HEENT: No recent visual problems or hearing problems. Denied any sore throat. CARDIOVASCULAR: As mentioned in HPI PULMONARY: As mentioned in HPI GASTROINTESTINAL: No diarrhea, no nausea, no vomiting, no abdominal pain. NEUROLOGICAL: No headaches, no weakness, no numbness. HEMATOLOGICAL: Denies any bleeding or petechiae. GENITOURINARY: Denies any burning micturition, frequency, or urgency. MUSCULOSKELETAL/RHEUMATOLOGICAL: Denies any joint pain, swelling, or any muscle pain. ENDOCRINE: Denies any polyuria or polydipsia. The rest of the 14-point review of systems is negative. PHYSICAL EXAMINATION: GENERAL: The patient is alert and oriented x3, not in any acute distress. Well developed, well nourished. HEENT: Pupils are round and equally reacting to light. EOMI. No scleral icterus. No conjunctival pallor. Normocephalic, atraumatic. No pharyngeal erythema. No thyromegaly. CARDIOVASCULAR: S1 and S2 present. No murmurs, rubs, or gallops. PULMONARY: Chest is clear to auscultation, no wheezing or crackles. ABDOMEN: Soft, nontender, nondistended, normoactive bowel sounds. No palpable organomegaly. MUSCULOSKELETAL: No joint swelling or deformity. EXTREMITIES: No cyanosis, clubbing, or pedal edema. NEUROLOGICAL: Gross neurological examination did not reveal any focal deficits. SKIN: No rashes. Assessment and plan Elevated troponin Acute hypoxemic respiratory failure COVID-19 infection Hyponatremia Acute transaminitis Chronic atrial fibrillation Hypertension Hyperlipidemia Monitor vital signs Monitor CBC Monitor CMP Continue telemetry monitoring Trend troponins. Ordered 2-D echo Strict I's and O's, daily weights, Ordered pharmacy dose heparin Start Decadron for covid19 infection Daily COVID-19 lab Consult ID Consult cardiology Labs and medication were reviewed.. Continue same treatment. Continue with symptomatic treatment. Resume home medication. Monitor labs and vitals. DVT and GI prophylaxis. Further recommendations as per clinical course of the patient Dictation was produced using [employer] dictation software. please excuse any grammatical, word or spelling errors. Past Medical History Past Medical History: Atrial Fibrillation, Hyperlipidemia, Hypertension, Osteoarthritis (OA), Rheumatoid Arthritis (RA) Additional Past Medical History / Comment(s): VARICOSE VEINS, ENVIRONMENTAL ALLERGIES, SINUS DRAINAGE WITH COUGH- STATES SHE SPOKE WITH Scott AT [facility]. STATES SHE WEARS SPECIAL SHOE LEFT FOOT AND USES CANE. History of Any Multi-Drug Resistant Organisms: None Reported Past Surgical History: Appendectomy, Hysterectomy, Joint Replacement, Orthopedic Surgery Additional Past Surgical History / Comment(s): left hip replacement, HEMMORHOIDS, LEFT CARPAL TUNNEL , BUNIONS, FATTY TUMOR RIGHT BREAST, LEFT GREAT TOE, CATARACTS. Past Anesthesia/Blood Transfusion Reactions: Motion Sickness Additional Past Anesthesia/Blood Transfusion Reaction / Comment(s): "TAKES A LONG TIME TO WAKE UP" Past Psychological History: No Psychological Hx Reported Smoking Status: Never smoker Past Alcohol Use History: None Reported Past Drug Use History: None Reported - Past Family History Brother(s) Family Medical History: Cancer Sister(s) Family Medical History: Cancer Daughter(s) Additional Family Medical History / Comment(s): MULTIPLE SCLEROSIS- . Medications and Allergies Home Medications Medication Instructions Recorded Confirmed Type Cyanocobalamin [Vitamin B-12] 500 mcg PO SA 06/19/17 07/10/23 History Garlic 1 tab PO DAILY 01/25/21 07/10/23 History Krill/[place]-3/Dha/Epa/Lipids 1 cap PO DAILY 01/25/21 07/10/23 History [Krill Oil 350 mg Softgel] Aspirin EC [Ecotrin Low Dose] 40.5 mg PO DAILY 05/17/22 07/10/23 History Ezetimibe [Zetia] 10 mg PO HS 05/17/22 07/10/23 History Fexofenadine HCl [Hailey Allergy] 180 mg PO DAILY PRN 05/17/22 07/10/23 History Metoprolol Tartrate [Lopressor] 25 mg PO HS #0 05/17/22 07/10/23 Rx Calcium/Magnesium/Zinc/Vitamin D 1 tab PO HS 07/10/23 07/10/23 History Cholecalciferol [Vitamin D3 (25 50 mcg PO DAILY 07/10/23 07/10/23 History Mcg = 1000 Iu)] Losartan Potassium [Cozaar] 100 mg PO DAILY 07/10/23 07/10/23 History Magnesium 250 mg PO HS 07/10/23 07/10/23 History Ubidecarenone [Coenzyme Q10] 200 mg PO HS 07/10/23 07/10/23 History Warfarin [Coumadin] 1.5 mg PO SUTUWEFR@2100 07/10/23 07/10/23 History Warfarin [Coumadin] 3 mg PO MOTHSA@2100 07/10/23 07/10/23 History Allergies Allergy/AdvReac Type Severity Reaction Status Date / Time Sulfa (Sulfonamide Allergy Unknown Rash/Hives Verified 07/10/23 19:35 Antibiotics) alcohol AdvReac Unknown Rapid Verified 07/10/23 19:35 Heart Rate, Flushed face Physical Exam Vitals: Vital Signs Temp Pulse Resp BP Pulse Ox 07/11/23 08:47 99 F 64 18 126/81 96 07/11/23 07:05 63 18 139/85 98 07/11/23 06:17 63 17 137/71 99 07/11/23 05:19 57 L 17 95/79 98 07/11/23 00:01 77 17 128/84 99 07/10/23 19:41 98.4 F 90 17 151/98 07/10/23 15:59 98 20 207/105 96 07/10/23 15:54 99.3 F 80 24 107/72 96 Intake and Output 07/10/23 07/11/23 07/11/23 22:59 06:59 14:59 Other: Weight 68.039 kg Results CBC & Chem 7: 07/11/23 10:06 07/11/23 10:06 Labs: Abnormal Lab Results - Last 24 Hours (Table) 07/10/23 07/10/23 07/10/23 Range/Units 16: 16: 16: Lymphocytes # 0.4 L (1.0-4.8) k/uL PT 16.7 H (10.0-12.5) sec INR 1.6 H (<1.2) APTT 32.1 H (22.0-30.0) sec Sodium 125 L (137-145) mmol/L Chloride 91 L (98-107) mmol/L Carbon Dioxide 20 L (22-30) mmol/L BUN 18 H (7-17) mg/dL Glucose 111 H (74-99) mg/dL AST 73 H (14-36) U/L ALT 51 H (4-34) U/L Troponin I (0.000-0.034) ng/mL SARS-CoV-2 (PCR) (Not Detectd) 07/10/23 07/10/23 07/10/23 Range/Units 16:23 16: 20:50 Lymphocytes # (1.0-4.8) k/uL PT (10.0-12.5) sec INR (<1.2) APTT (22.0-30.0) sec Sodium (137-145) mmol/L Chloride (98-107) mmol/L Carbon Dioxide (22-30) mmol/L BUN (7-17) mg/dL Glucose (74-99) mg/dL AST (14-36) U/L ALT (4-34) U/L Troponin I 0.045 H* 0.226 H* (0.000-0.034) ng/mL SARS-CoV-2 (PCR) Detected A (Not Detectd) 07/10/23 Range/Units 23:44 Lymphocytes # (1.0-4.8) k/uL PT (10.0-12.5) sec INR (<1.2) APTT (22.0-30.0) sec Sodium (137-145) mmol/L Chloride (98-107) mmol/L Carbon Dioxide (22-30) mmol/L BUN (7-17) mg/dL Glucose (74-99) mg/dL AST (14-36) U/L ALT (4-34) U/L Troponin I 0.333 H* (0.000-0.034) ng/mL SARS-CoV-2 (PCR) (Not Detectd)
--- NOTE | 2023-07-11 15:39 | P.CRDCN ---
History of Present Illness Consult date: 07/11/23 Reason for Consult (text): Elevated troponin History of present illness: This is Jace Rodriguez NP, I'm dictating on behalf of Dr. Greenberg's H&P and A&P The patient was interviewed and examined. HPI: Patient is a pleasant 87-year-old female who is in the hospital with acute respiratory failure, elevated troponins. Patient reports that her symptoms started 2 days ago, and reports she been unable to lie flat due to increased work of breathing. Patient does have a history of atrial fibrillation, hypertension, chronic kidney disease, and hyperlipidemia. Patient also reports some underlying asthma, but states she has no treatment for it. The patient reports multiple people in her home are sick. During medical evaluation patient was found to have elevated troponins. EKG was negative for any obvious ST or T- wave elevations or depressions, or T-wave changes. Blood pressure was mildly elevated upon admission, heart rate remained steady, likely secondary to hypoxia. Patient is currently noted to be on room air. Minimal evaluation was done secondary to patient's COVID-19 status. ROS: Patient had limited interview/exam secondary to active Covid infection. EXAMINATION: Patient had limited interview/exam secondary to active Covid infection. REVIEW OF LABS, ECG & MEDICAL DATA: LABS: White count 5.2, hemoglobin 14.4, platelets 158, sodium 1:30, potassium 3.6, B1 22, creatinine 0.86, troponin-0.045, 0.226, 0.33, 0.202, BNP 5620 EKG: Atrial fibrillation with controlled ventricular response IMAGING: Chest x-ray dated 07/10/2023 demonstrates COPD mild cardiomegaly, no definite acute process. VITALS: Temp 99.0, pulse 64, respirations 18, blood pressure 126/81, O2 saturation 96% on room air IMPRESSION: 1. COVID-19 infection 2. Persistent atrial fibrillation, controlled 3. Elevated troponin 4. History asthma 5. Hypoxia PLAN: Start atorvastatin 20 g daily. Continue metoprolol and other cardiac medications. Elevated troponin is likely secondary to Covid related to myocarditis. Noted that troponin is already starting to plateau and decrease. Further recommendations based on patient's clinical course. Thank you for the consult and allowing us to participate in the care of this patient. Past Medical History Past Medical History: Atrial Fibrillation, Hyperlipidemia, Hypertension, Osteoarthritis (OA), Rheumatoid Arthritis (RA) Additional Past Medical History / Comment(s): VARICOSE VEINS, ENVIRONMENTAL ALLERGIES, SINUS DRAINAGE WITH COUGH- STATES SHE SPOKE WITH Scott AT [facility]. STATES SHE WEARS SPECIAL SHOE LEFT FOOT AND USES CANE. History of Any Multi-Drug Resistant Organisms: None Reported Past Surgical History: Appendectomy, Hysterectomy, Joint Replacement, Orthopedic Surgery Additional Past Surgical History / Comment(s): left hip replacement, HEMMORHOIDS, LEFT CARPAL TUNNEL , BUNIONS, FATTY TUMOR RIGHT BREAST, LEFT GREAT TOE, CATARACTS. Past Anesthesia/Blood Transfusion Reactions: Motion Sickness Additional Past Anesthesia/Blood Transfusion Reaction / Comment(s): "TAKES A LONG TIME TO WAKE UP" Past Psychological History: No Psychological Hx Reported Smoking Status: Never smoker Past Alcohol Use History: None Reported Past Drug Use History: None Reported - Past Family History Brother(s) Family Medical History: Cancer Sister(s) Family Medical History: Cancer Daughter(s) Additional Family Medical History / Comment(s): MULTIPLE SCLEROSIS- . Medications and Allergies Home Medications Medication Instructions Recorded Confirmed Type Cyanocobalamin [Vitamin B-12] 500 mcg PO SA 06/19/17 07/10/23 History Garlic 1 tab PO DAILY 01/25/21 07/10/23 History Krill/[place]-3/Dha/Epa/Lipids 1 cap PO DAILY 01/25/21 07/10/23 History [Krill Oil 350 mg Softgel] Aspirin EC [Ecotrin Low Dose] 40.5 mg PO DAILY 05/17/22 07/10/23 History Ezetimibe [Zetia] 10 mg PO HS 05/17/22 07/10/23 History Fexofenadine HCl [Hailey Allergy] 180 mg PO DAILY PRN 05/17/22 07/10/23 History Metoprolol Tartrate [Lopressor] 25 mg PO HS #0 05/17/22 07/10/23 Rx Calcium/Magnesium/Zinc/Vitamin D 1 tab PO HS 07/10/23 07/10/23 History Cholecalciferol [Vitamin D3 (25 50 mcg PO DAILY 07/10/23 07/10/23 History Mcg = 1000 Iu)] Losartan Potassium [Cozaar] 100 mg PO DAILY 07/10/23 07/10/23 History Magnesium 250 mg PO HS 07/10/23 07/10/23 History Ubidecarenone [Coenzyme Q10] 200 mg PO HS 07/10/23 07/10/23 History Warfarin [Coumadin] 1.5 mg PO SUTUWEFR@2100 07/10/23 07/10/23 History Warfarin [Coumadin] 3 mg PO MOTHSA@2100 07/10/23 07/10/23 History Allergies Allergy/AdvReac Type Severity Reaction Status Date / Time Sulfa (Sulfonamide Allergy Unknown Rash/Hives Verified 07/10/23 19:35 Antibiotics) alcohol AdvReac Unknown Rapid Verified 07/10/23 19:35 Heart Rate, Flushed face Physical Exam Vitals: Vital Signs Temp Pulse Resp BP Pulse Ox 07/11/23 15:17 85 18 110/73 96 07/11/23 12:00 60 24 115/67 95 07/11/23 10:00 632 H 18 114/57 95 07/11/23 08:47 99 F 64 18 126/81 96 07/11/23 07:05 63 18 139/85 98 07/11/23 06:17 63 17 137/71 99 07/11/23 05:19 57 L 17 95/79 98 07/11/23 00:01 77 17 128/84 99 07/10/23 19:41 98.4 F 90 17 151/98 07/10/23 15:59 98 20 207/105 96 07/10/23 15:54 99.3 F 80 24 107/72 96 Results 07/11/23 10:06 07/11/23 10:06 Cardiac Enzymes 07/10/23 07/10/23 07/10/23 Range/Units 16:23 16:23 20:50 AST 73 H (14-36) U/L Troponin I 0.045 H* 0.226 H* (0.000-0.034) ng/mL 07/10/23 07/11/23 Range/Units 23:44 10:06 AST (14-36) U/L Troponin I 0.333 H* 0.202 H* (0.000-0.034) ng/mL Coagulation 07/10/23 07/11/23 Range/Units 16:23 10:06 PT 16.7 H 30.1 H (10.0-12.5) sec APTT 32.1 H 38.9 H (22.0-30.0) sec CBC 07/10/23 07/11/23 Range/Units 16:23 10:06 WBC 7.6 5.2 (3.8-10.6) k/uL RBC 4.29 4.61 (3.80-5.40) m/uL Hgb 13.3 14.4 (11.4-16.0) gm/dL Hct 39.9 44.1 (34.0-46.0) % Plt Count 166 158 (150-450) k/uL Comprehensive Metabolic Panel 07/10/23 07/11/23 Range/Units 16:23 10:06 Sodium 125 L 130 L (137-145) mmol/L Potassium 4.1 3.6 (3.5-5.1) mmol/L Chloride 91 L 89 L (98-107) mmol/L Carbon Dioxide 20 L 23 (22-30) mmol/L BUN 18 H 22 H (7-17) mg/dL Creatinine 0.79 0.86 (0.52-1.04) mg/dL Glucose 111 H 226 H (74-99) mg/dL Calcium 8.8 9.0 (8.4-10.2) mg/dL AST 73 H (14-36) U/L ALT 51 H (4-34) U/L Alkaline Phosphatase 83 (38-126) U/L Total Protein 7.2 (6.3-8.2) g/dL Albumin 4.4 (3.5-5.0) g/dL Current Medications Generic Name Dose Route Start Last Admin Trade Name Freq PRN Reason Stop Dose Admin Albuterol Sulfate 2 puff 07/11/23 08:00 07/11/23 11:54 Albuterol Hfa Inhaler INHALATION 2 puff RT-QID HERMELINDO Administration Aspirin 40.5 mg 07/11/23 09:00 07/11/23 08:50 Aspirin 81 Mg PO 40.5 mg DAILY HERMELINDO Administration Atorvastatin Calcium 20 mg 07/11/23 09:45 07/11/23 10:16 Atorvastatin 20 Mg Tab PO Not Given DAILY HERMELINDO Calcium Carbonate 1 each 07/10/23 22:30 07/10/23 22:16 Calcium Carb-Vit D 500 Mg-5 Mcg Tab PO 1 each HS HERMELINDO Administration Cholecalciferol 50 mcg 07/11/23 09:00 07/11/23 08:50 Cholecalciferol 25 Mcg (1000 Iu) Tablet PO 50 mcg DAILY HERMELINDO Administration Dexamethasone 6 mg 07/11/23 09:15 07/11/23 10:07 Dexamethasone 2 Mg Tab PO 6 mg DAILY HERMELINDO Administration Ezetimibe 10 mg 07/10/23 22:00 07/10/23 22:16 Ezetimibe 10 Mg Tab PO 10 mg HS HERMELINDO Administration Heparin Sodium (Porcine) 0 unit 07/11/23 09:17 Heparin Sodium 1,000 Un/Ml (10ml Vl) IV PER PROTOCOL PRN Low PTT Protocol Heparin Sodium/Sodium Chloride 250 mls @ 8.165 mls/hr 07/11/23 09:30 07/11/23 10:12 25,000 unit/ Sodium Chloride IV 12 units/kg/hr .Q24H HERMELINDO 8.165 mls/hr Administration Protocol 12 UNITS/KG/HR Loratadine 10 mg 07/10/23 21:57 Loratadine 10 Mg Tab PO DAILY PRN Allergy Symptoms Losartan Potassium 100 mg 07/11/23 09:00 07/11/23 08:50 Losartan 50 Mg Tab PO 100 mg DAILY HERMELINDO Administration Magnesium Oxide 400 mg 07/10/23 22:30 07/10/23 22:16 Magnesium Oxide 400 Mg Tab PO 400 mg HS HERMELINDO Administration Metoprolol Tartrate 25 mg 07/10/23 22:30 07/10/23 22:16 Metoprolol Tartrate 25 Mg Tab PO 25 mg HS HERMELINDO Administration Miscellaneous Information 1 each 07/10/23 19:17 Warfarin Per Pharmacy MISCELLANE DIRECTED PRN Per Protocol Protocol Naloxone HCl 0.2 mg 07/10/23 19:27 Naloxone 0.4 Mg/Ml 1 Ml Vial IV Q2M PRN Opioid Reversal Warfarin Sodium 0 mg 07/11/23 18:00 Warfarin 0.5 Mg Tab PO 07/11/23 18:01 ONCE@1800 ONE 07/11/23 10:06 07/11/23 10:06
[2023-07-11] MEDS ORDERED: WARFARIN 0.5 MG TAB PO ONE (18:00)
[2023-07-11] MEDS: MAGNESIUM OXIDE 400 MG TAB PO SCH (19:50)
[2023-07-11] MEDS: EZETIMIBE 10 MG TAB PO SCH (19:51)
[2023-07-11] MEDS: CALCIUM CARB-VIT D 500 MG-5 MCG TAB PO SCH (19:51)
[2023-07-11] MEDS: METOPROLOL TARTRATE 25 MG TAB PO SCH (19:51)
[2023-07-12 05:04] VITALS: RESP 18
--- NOTE | 2023-07-12 07:11 | P.CONS ---
History of Present Illness - Reason for Consult Consult date: 07/11/23 - History of Present Illness Patient is a 87-year-old female with a past medical history significant for hypertension hyperlipidemia rheumatoid arthritis and atrial fibrillation patient was brought into the hospital for evaluation of increasing shortness of breath patient symptoms started about 2 days before presentation to the hospital in this patient who did have a fever on after that the patient started having increasing shortness of breath and did have a cough cough has been mild to moderate intensity with some clear sputum no hemoptysis patient did have continued worsening shortness of breath that he was unable to catch her breath for the patient was brought to the hospital patient denies having any pleuritic chest pain no nausea no vomiting did have decreased oral intake and abdominal pain or any diarrhea with the symptoms the patient was evaluated on presentation to the hospital she did have a low-grade fever of 99.3 F patient did have a tachycardia but no hypotension or hypoxemia or need for supplemental oxygen patient did have a white count of 7.6 with lymphopenia creatinine normal liver enzymes mildly elevated did have elevated troponin patient tested positive for COVID influenza RSV was negative patient did have a chest x-ray COPD and mild cardiomegaly no definite acute process patient was admitted to the hospital infectious disease was consulted for further management Past Medical History Past Medical History: Atrial Fibrillation, Hyperlipidemia, Hypertension, Osteoarthritis (OA), Rheumatoid Arthritis (RA) Additional Past Medical History / Comment(s): VARICOSE VEINS, ENVIRONMENTAL ALLERGIES, SINUS DRAINAGE WITH COUGH- STATES SHE SPOKE WITH PGeri AT [facility]. STATES SHE WEARS SPECIAL SHOE LEFT FOOT AND USES CANE. History of Any Multi-Drug Resistant Organisms: None Reported Past Surgical History: Appendectomy, Hysterectomy, Joint Replacement, Orthopedic Surgery Additional Past Surgical History / Comment(s): left hip replacement, HEMMORHOIDS, LEFT CARPAL TUNNEL , BUNIONS, FATTY TUMOR RIGHT BREAST, LEFT GREAT TOE, CATARACTS. Past Anesthesia/Blood Transfusion Reactions: Motion Sickness Additional Past Anesthesia/Blood Transfusion Reaction / Comm: "TAKES A LONG TIME TO WAKE UP" Past Psychological History: No Psychological Hx Reported Smoking Status: Never smoker Past Alcohol Use History: None Reported Past Drug Use History: None Reported - Past Family History Brother(s) Family Medical History: Cancer Sister(s) Family Medical History: Cancer Daughter(s) Additional Family Medical History / Comment(s): MULTIPLE SCLEROSIS- . Medications and Allergies Home Medications Medication Instructions Recorded Confirmed Type Cyanocobalamin [Vitamin B-12] 500 mcg PO SA 06/19/17 07/10/23 History Garlic 1 tab PO DAILY 01/25/21 07/10/23 History Krill/[place]-3/Dha/Epa/Lipids 1 cap PO DAILY 01/25/21 07/10/23 History [Krill Oil 350 mg Softgel] Aspirin EC [Ecotrin Low Dose] 40.5 mg PO DAILY 05/17/22 07/10/23 History Ezetimibe [Zetia] 10 mg PO HS 05/17/22 07/10/23 History Fexofenadine HCl [Hailey Allergy] 180 mg PO DAILY PRN 05/17/22 07/10/23 History Metoprolol Tartrate [Lopressor] 25 mg PO HS #0 05/17/22 07/10/23 Rx Calcium/Magnesium/Zinc/Vitamin D 1 tab PO HS 07/10/23 07/10/23 History Cholecalciferol [Vitamin D3 (25 50 mcg PO DAILY 07/10/23 07/10/23 History Mcg = 1000 Iu)] Losartan Potassium [Cozaar] 100 mg PO DAILY 07/10/23 07/10/23 History Magnesium 250 mg PO HS 07/10/23 07/10/23 History Ubidecarenone [Coenzyme Q10] 200 mg PO HS 07/10/23 07/10/23 History Warfarin [Coumadin] 1.5 mg PO SUTUWEFR@2100 07/10/23 07/10/23 History Warfarin [Coumadin] 3 mg PO MOTHSA@2100 07/10/23 07/10/23 History Allergies Allergy/AdvReac Type Severity Reaction Status Date / Time Sulfa (Sulfonamide Allergy Unknown Rash/Hives Verified 07/10/23 19:35 Antibiotics) alcohol AdvReac Unknown Rapid Verified 07/10/23 19:35 Heart Rate, Flushed face Physical Exam Vitals: Vital Signs Temp Pulse Resp BP Pulse Ox 07/11/23 10:00 632 H 18 114/57 95 07/11/23 08:47 99 F 64 18 126/81 96 07/11/23 07:05 63 18 139/85 98 07/11/23 06:17 63 17 137/71 99 07/11/23 05:19 57 L 17 95/79 98 12/23/23 00:01 77 17 128/84 99 07/10/23 19:41 98.4 F 90 17 151/98 07/10/23 15:59 98 20 207/105 96 07/10/23 15:54 99.3 F 80 24 107/72 96 Intake and Output 07/10/23 07/11/23 07/11/23 22:59 06:59 14:59 Other: Weight 68.039 kg Results CBC & Chem 7: 07/11/23 10:06 07/11/23 10:06 Labs: Abnormal Lab Results - Last 24 Hours (Table) 07/10/23 07/10/23 07/10/23 Range/Units 16:23 16:23 16:23 Lymphocytes # 0.4 L (1.0-4.8) k/uL PT 16.7 H (10.0-12.5) sec INR 1.6 H (<1.2) APTT 32.1 H (22.0-30.0) sec Sodium 125 L (137-145) mmol/L Chloride 91 L (98-107) mmol/L Carbon Dioxide 20 L (22-30) mmol/L BUN 18 H (7-17) mg/dL Glucose 111 H (74-99) mg/dL AST 73 H (14-36) U/L ALT 51 H (4-34) U/L Troponin I (0.000-0.034) ng/mL SARS-CoV-2 (PCR) (Not Detectd) 07/10/23 07/10/23 07/10/23 Range/Units 16:23 16:23 20:50 Lymphocytes # (1.0-4.8) k/uL PT (10.0-12.5) sec INR (<1.2) APTT (22.0-30.0) sec Sodium (137-145) mmol/L Chloride (98-107) mmol/L Carbon Dioxide (22-30) mmol/L BUN (7-17) mg/dL Glucose (74-99) mg/dL AST (14-36) U/L ALT (4-34) U/L Troponin I 0.045 H* 0.226 H* (0.000-0.034) ng/mL SARS-CoV-2 (PCR) Detected A (Not Detectd) 07/10/23 07/11/23 07/11/23 Range/Units 23:44 10:06 10:06 Lymphocytes # 0.6 L (1.0-4.8) k/uL PT 30.1 H (10.0-12.5) sec INR 3.1 H (<1.2) APTT 38.9 H (22.0-30.0) sec Sodium (137-145) mmol/L Chloride (98-107) mmol/L Carbon Dioxide (22-30) mmol/L BUN (7-17) mg/dL Glucose (74-99) mg/dL AST (14-36) U/L ALT (4-34) U/L Troponin I 0.333 H* (0.000-0.034) ng/mL SARS-CoV-2 (PCR) (Not Detectd) Assessment and Plan Plan: 1-patient presented to hospital with increasing shortness of breath which is likely multifactorial patient did tested positive for COVID however the patient is currently not running any fever patient not hypoxic chest x-ray did not show any acute infiltrate suspicious for COVID-19 pneumonia treatment will be mostly supportive 2-patient also have elevated troponin and concerning for possible cardiac component undergoing echocardiogram further management per cardiology 3-patient will be advised zinc ascorbic acid heparin, no need for remdesivir 4-droplet isolation Daughter at the bedside questions were answered We will follow on clinical condition and cultures to further adjust medication if needed Thank you for this consultation we will follow the patient along with you Dictation was produced using [employer] dictation software. please excuse any grammatical, word or spelling errors. Time with Patient: Greater than 30
[2023-07-12 07:49] LABS: Basophils % (A) 0 %; Eosinophils % (A) 0 %; HCT 40.5 % (34.0-46.0); HGB 13.6 gm/dL (11.4-16.0); Lymphocytes # (A) 0.6 k/uL (1.0-4.8); Lymphocytes % (A) 8 %; MCH 31.2 pg (25.0-35.0); MCHC 33.5 g/dL (31.0-37.0); MCV 93.1 fL (80.0-100.0); Mean Platelet Volume 8.6; Monocytes # (A) 0.5 k/uL (0-1.0); Monocytes % (A) 8 %; Neutrophils # (A) 5.7 k/uL (1.3-7.7); Neutrophils % (A) 83 %; Platelet Count 182 k/uL (150-450); RBC 4.35 m/uL (3.80-5.40); RDW 13.3 % (11.5-15.5); WBC 6.9 k/uL (3.8-10.6)
[2023-07-12 07:53] LABS: INR 1.6 (<1.2); Prothrombin Time 16.3 sec (10.0-12.5); Prothrombin Time 16.5 sec (10.0-12.5)
[2023-07-12] MEDS: ALBUTEROL HFA INHALER INHALATION SCH ×2 (07:59→11:28)
[2023-07-12] MEDS: ATORVASTATIN 20 MG TAB PO SCH (08:14)
[2023-07-12] MEDS: LOSARTAN 50 MG TAB PO SCH (08:15)
[2023-07-12] MEDS: dexAMETHasone 2 MG TAB PO SCH (08:15)
[2023-07-12] MEDS: ASPIRIN 81 MG PO SCH (08:15)
[2023-07-12] MEDS: CHOLECALCIFEROL 25 MCG (1000 IU) TABLET PO SCH (08:18)
[2023-07-12 08:43] VITALS: BP 121/62; PULSE 78; TEMP 97.5
[2023-07-12] MEDS ORDERED: ZINC SULFATE 220 MG CAP PO SCH (09:00)
[2023-07-12] MEDS ORDERED: ASCORBIC ACID 500 MG TAB PO SCH (09:00)
--- NOTE | 2023-07-12 12:24 | P.DS ---
Providers Date of admission: 07/10/23 19:27 Expected date of discharge: 07/12/23 Attending physician: Ranulfo Castaneda Consults: 07/10/23 19:27 Consult Physician Urgent Consulting Provider: [facility] Consult Reason/Comments: elevated trop, possible chf Do you want consulting provider notified?: Yes 07/11/23 09:11 Consult Physician Routine Consulting Provider: Jia Baez Consult Reason/Comments: COVID-19 infection Do you want consulting provider notified?: Yes Primary care physician: Susi Pizarro Hospital Course: Discharge diagnoses; Elevated troponin Acute hypoxemic respiratory failure COVID-19 infection Hyponatremia Acute transaminitis Chronic atrial fibrillation Hypertension Hyperlipidemia Hospital course; patient is 87-year-old lady with past medical history significant for permanent atrial fibrillation,hypertension ,dyslipidemia ,chronic kidney disease who p resented to the hospital because of worsening shortness of breath. Patient stated that she was all right yesterday when she started noticing that she was getting short of breath at rest. Patient denied any chest pain. Patient was unable to lay flat and was complaining of orthopnea. Denied any PND. There was no complain of swelling of feet. Patient was complaining of fevers at home. Patient has exposure to sick contacts at home. Denies any nausea, vomiting abdominal pain. Because of this shortness of breath, patient came to the ER Initial lab work done in the ER showed WBC 7.6, hemoglobin 13.3, platelet count 166, sodium 125, potassium 4.1, BUN 18, creatinine 0.79, glucose 111, AST 73, AST 51, troponin 0.045, proBNP 5620 Influenza A not detected Influenza B not detected RSV not detected COVID-19 detected EKG done in the ER showed heart rate of 77, no p waves no ST segment elevation or depression seen, no T-wave inversions seen. Chest x-ray done in the ER showed COPD and mild cardiac megaly, no definite acute process Patient admitted to internal medicine service 07/12. Patient seen and examined. Cardiology evaluated the patient, recommended elevated troponin were secondary to COVID-19 infection, recommend no ischemic workup. Recommend Outpatient follow-up. Being discharged on statin. PHYSICAL EXAMINATION: GENERAL: The patient is alert and oriented x3, not in any acute distress. Well developed, well nourished. HEENT: Pupils are round and equally reacting to light. EOMI. No scleral icterus. No conjunctival pallor. Normocephalic, atraumatic. No pharyngeal erythema. No thyromegaly. CARDIOVASCULAR: S1 and S2 present. No murmurs, rubs, or gallops. PULMONARY: Chest is clear to auscultation, no wheezing or crackles. ABDOMEN: Soft, nontender, nondistended, normoactive bowel sounds. No palpable organomegaly. MUSCULOSKELETAL: No joint swelling or deformity. EXTREMITIES: No cyanosis, clubbing, or pedal edema. NEUROLOGICAL: Gross neurological examination did not reveal any focal deficits. SKIN: No rashes. Dictation was produced using [employer] dictation software. please excuse any grammatical, word or spelling errors. Patient Condition at Discharge: Stable Plan - Discharge Summary Discharge Rx Participant: No New Discharge Prescriptions: New dexAMETHasone ORAL [Hexadrol] 6 mg PO DAILY 5 Days #5 tab Pravastatin Sodium [Pravachol] 10 mg PO HS 30 Days #30 tab Continue Cyanocobalamin [Vitamin B-12] 500 mcg PO SA Krill/[place]-3/Dha/Epa/Lipids [Krill Oil 350 mg Softgel] 1 cap PO DAILY Garlic 1 tab PO DAILY Fexofenadine HCl [Hailey Allergy] 180 mg PO DAILY PRN PRN Reason: Allergy Symptoms Magnesium 250 mg PO HS Warfarin [Coumadin] 3 mg PO MOTHSA@2100 Aspirin EC [Ecotrin Low Dose] 40.5 mg PO DAILY Ezetimibe [Zetia] 10 mg PO HS Metoprolol Tartrate [Lopressor] 25 mg PO HS #0 Cholecalciferol [Vitamin D3 (25 Mcg = 1000 Iu)] 50 mcg PO DAILY Ubidecarenone [Coenzyme Q10] 200 mg PO HS Calcium/Magnesium/Zinc/Vitamin D 1 tab PO HS Losartan Potassium [Cozaar] 100 mg PO DAILY Discontinued Warfarin [Coumadin] 1.5 mg PO SUTUWEFR@2100 Discharge Medication List Cyanocobalamin [Vitamin B-12] 500 mcg PO SA 06/19/17 [History] Garlic 1 tab PO DAILY 01/25/21 [History] Krill/[place]-3/Dha/Epa/Lipids [Krill Oil 350 mg Softgel] 1 cap PO DAILY 01/25/21 [History] Aspirin EC [Ecotrin Low Dose] 40.5 mg PO DAILY 05/17/22 [History] Ezetimibe [Zetia] 10 mg PO HS 05/17/22 [History] Fexofenadine HCl [Hailey Allergy] 180 mg PO DAILY PRN 05/17/22 [History] Metoprolol Tartrate [Lopressor] 25 mg PO HS #0 05/17/22 [Rx] Calcium/Magnesium/Zinc/Vitamin D 1 tab PO HS 07/10/23 [History] Cholecalciferol [Vitamin D3 (25 Mcg = 1000 Iu)] 50 mcg PO DAILY 07/10/23 [History] Losartan Potassium [Cozaar] 100 mg PO DAILY 07/10/23 [History] Magnesium 250 mg PO HS 07/10/23 [History] Ubidecarenone [Coenzyme Q10] 200 mg PO HS 07/10/23 [History] Warfarin [Coumadin] 3 mg PO MOTHSA@2100 07/10/23 [History] Pravastatin Sodium [Pravachol] 10 mg PO HS 30 Days #30 tab 07/12/23 [Rx] dexAMETHasone ORAL [Hexadrol] 6 mg PO DAILY 5 Days #5 tab 07/12/23 [Rx] Follow up Appointment(s)/Referral(s): Susi Pizarro MD [Primary Care Provider] - 1-2 days (Patient to schedule appointment as office is closed at this time. Ensure when making the appointment the office is aware this is following a hospital stay.) Patient Instructions/Handouts: COVID-19 (Coronavirus Disease 2019) (DC), COVID- 19 and Chronic Health Conditions (DC), COVID-19: Slow the Coronavirus Spread (DC ), Face Coverings (Masks) and COVID-19 (DC) Discharge Disposition: HOME SELF-CARE
--- NOTE | 2023-07-12 13:04 | P.PN ---
Subjective Progress Note Date: 07/12/23 The patient is an 87-year-old female who presented to the hospital with acute respiratory failure. She was found to be positive for Covid 19. Cardiology was consulted for elevated troponin, likely secondary to Covid related to myocarditis. The patient states she is feeling well this morning. She is up ambulating around her room without any chest pain or chest pressure. She states her shortness of breath has been improving. She continues to have a residual cough EXAMINATION: Patient had limited exam secondary to active Covid infection VITALS: Blood pressure 121/62, heart rate 78, afebrile, respiratory rate 18, 93% on room air TELEMETRY: Persistent atrial fibrillation, rate controlled IMPRESSION: Acute Covid 19 infection Persistent atrial fibrillation Elevated troponin History of asthma History of statin intolerance PLAN: Switch atorvastatin to pravastatin Patient may be discharged for outpatient follow-up I am dictating on behalf of Dr Juan Greenberg's history/physical and assessment /plan. Objective - Vital Signs Vital signs: Vital Signs Temp 97.5 F L 07/12/23 08:10 Pulse 78 07/12/23 08:10 Resp 18 07/12/23 08:10 BP 121/62 07/12/23 08:10 Pulse Ox 93 L 07/12/23 08:10 FiO2 Intake & Output 07/11/23 07/12/23 07/12/23 18:59 06:59 18:59 Intake Total 540 110 Balance 540 110 Weight 68.039 kg Intake: Oral 540 110 Other: Voiding Method Toilet Toilet Diaper Diaper # Voids 2 - Labs CBC & Chem 7: 07/12/23 06:37 07/11/23 10:06 Labs: Abnormal Lab Results - Last 24 Hours (Table) 07/11/23 07/11/23 07/12/23 Range/Units 14:59 14:59 06:37 Lymphocytes # (1.0-4.8) k/uL PT 16.3 H (10.0-12.5) sec INR 1.6 H (<1.2) APTT 76.7 H (22.0-30.0) sec Troponin I 0.124 H* (0.000-0.034) ng/mL 07/12/23 07/12/23 Range/Units 06:37 06:37 Lymphocytes # 0.6 L (1.0-4.8) k/uL PT 16.5 H (10.0-12.5) sec INR 1.6 H (<1.2) APTT (22.0-30.0) sec Troponin I (0.000-0.034) ng/mL
--- NOTE | 2023-07-12 14:23 | CA ---
Transthoracic Echo Report Name: Gayle Cardenas Age: 87 Gender: F : 1935 Exam Date: 07/11/2023 14:03 Exam Location: [facility] Ht (in): 64 Wt (lb): 150 Ordering Physician: Marquez Stewart MD Attending/Referring Phys: [place] Performer Armin Flores Procedure CPT: Indications: shortness of breath, elevated troponin Cardiac Hx: Technical Quality: Fair Contrast 1: Total Dose (mL): Contrast 2: Total Dose (mL): MEASUREMENTS (Male / Female) Normal Values 2D ECHO LV Diastolic Diameter PLAX 4.5 cm 4.2 - 5.9 / 3.9 - 5.3 cm LV Systolic Diameter PLAX 2.6 cm IVS Diastolic Thickness 1.0 cm 0.6 - 1.0 / 0.6 - 0.9 cm LVPW Diastolic Thickness 1.0 cm 0.6 - 1.0 / 0.6 - 0.9 cm LV Relative Wall Thickness 0.4 RV Internal Dim ED PLAX 2.7 cm LVOT Diameter 2.0 cm Aortic Root Diameter 2.7 cm LA Systolic Diameter LX 2.7 cm 3.0 - 4.0 / 2.7 - 3.8 cm LV Diastolic Volume MOD BP 27.4 cm??? 67 - 155 / 56 - 104 cm??? LV Systolic Volume MOD BP 11.3 cm??? 22 - 58 / 19 - 49 cm??? LV Ejection Fraction MOD BP 58.8 % >= 55 % LV Cardiac Index MOD BP 528.2 cm???/min???m??? LV Diastolic Volume MOD 4C 25.8 cm??? LV Systolic Volume MOD 4C 10.8 cm??? LV Ejection Fraction MOD 4C 58.3 % LV Cardiac Index MOD 4C 494.9 cm???/min???m??? LV Diastolic Length 4C 7.3 cm LV Systolic Length 4C 6.4 cm LV Diastolic Volume MOD 2C 21.4 cm??? LV Systolic Volume MOD 2C 9.5 cm??? LV Ejection Fraction MOD 2C 55.5 % LV Cardiac Index MOD 2C 389.0 cm???/min???m??? LV Diastolic Length 2C 5.4 cm LV Systolic Length 2C 5.1 cm LA Volume 54.2 cm??? 18 - 58 / 22 - 52 cm??? LA Volume Index 30.7 cm???/m??? 16 - 28 cm???/m??? DOPPLER AV Peak Velocity 106.6 cm/s AV Peak Gradient 4.5 mmHg AI Peak Velocity 305.9 cm/s AI Peak Gradient 37.4 mmHg AI Pressure Half Time 552.2 ms LVOT Peak Velocity 71.4 cm/s LVOT Peak Gradient 2.0 mmHg LVOT Velocity Time Integral 16.7 cm LVOT Stroke Volume 50.7 cm??? LVOT Stroke Volume Index 29.3 ml/m??? LVOT Cardiac Index 1665.8 cm???/min???m??? AV Area Cont Eq pk 2.0 cm??? MV Peak Velocity 113.9 cm/s MV Peak Gradient 5.2 mmHg MV Mean Velocity 56.5 cm/s MV Mean Gradient 1.6 mmHg MV Velocity Time Integral 26.8 cm MV E' Velocity 3.7 cm/s TR Peak Velocity 328.9 cm/s TR Peak Gradient 43.3 mmHg Right Ventricular Systolic Press 48.3 mmHg PV Peak Velocity 99.8 cm/s PV Peak Gradient 4.0 mmHg FINDINGS Left Ventricle Normal LV size and wall thickness. Apicalseptal hypokenesis, Basalseptal akinesis. Left ventricular ejection fraction is estimated at 35-40 %. Right Ventricle Normal right ventricular size. RVSP= 48mmHg. Right Atrium Mild right atrial dilatation. RA area= 21 cm2 Left Atrium Mildly increased left atrial volume. Mildly increased left atrial area. Mitral Valve Mild posterior MAC. No mitral regurgitation. Aortic Valve Aortic valve not well visualized. At least mild AV calcification. Mild to moderate AI. Tricuspid Valve Structurally normal tricuspid valve. Moderate TR. Pulmonic Valve Pulmonic valve not well visualized. Moderate PI. Pericardium Normal pericardium. Aorta Normal size aortic root. CONCLUSIONS Normal LV size with reduced LV systolic function ejection fraction 35-40% with septal hypokinesis, severe Previewed by: Dr. Juan Greenberg MD (Electronically Signed) Final Date: 12 July 2023 14:22
[2023-07-12] MEDS ORDERED: WARFARIN 3 MG TAB PO ONE (18:00)
[2023-07-12] MEDS ORDERED: PRAVASTATIN SODIUM 20 MG TAB PO SCH (21:00)
== END 2023-07-12 11:37 | disposition home or self-care (01) | DRG 177 ==
LOC: EC 15:51 → 3SCARD 19:27
PROVIDERS: ADMIT Hospitalist; ATTEND Hospitalist
DX: U07.1 COVID-19 (principal); J96.01 Acute respiratory failure with hypoxia; I48.21 Permanent atrial fibrillation; E87.1 Hypo-osmolality and hyponatremia; I13.0 Hypertensive heart and chronic kidney disease with heart failure and stage 1 through stage 4 chronic kidney disease, or unspecified chronic kidney disease; Z20.822 Contact with and (suspected) exposure to COVID-19; M06.9 Rheumatoid arthritis, unspecified; N18.9 Chronic kidney disease, unspecified; R74.01 Elevation of levels of liver transaminase levels; E78.5 Hyperlipidemia, unspecified; I08.1 Rheumatic disorders of both mitral and tricuspid valves; E11.22 Type 2 diabetes mellitus with diabetic chronic kidney disease; I50.9 Heart failure, unspecified; R79.89 Other specified abnormal findings of blood chemistry; Z79.01 Long term (current) use of anticoagulants; Z79.899 Other long term (current) drug therapy; Z90.710 Acquired absence of both cervix and uterus; Z96.642 Presence of left artificial hip joint; Z88.2 Allergy status to sulfonamides; Z98.42 Cataract extraction status, left eye; Z98.41 Cataract extraction status, right eye
CPT/HCPCS: 36415; 71046; 80048; 80053; 83880; 84484; 85025; 85610; 85730; 87636; 93005; 93306; 94640; 96361; 96365; 96366; 96374; 96375; 99285